=== PATIENT | female | born 1955 | race Caucasian/White ===

== ENCOUNTER → 2023-06-04 10:42 | Outpatient (REF) | payer MEDICARE, SELFPAY | LOC: MRI 3T 10:42 | PROVIDERS: ATTENDING PHYSICIAN Otolaryngology; PRIMARYCARE PHYSICIAN Family Medicine | DX: K11.8 Other diseases of salivary glands (principal) | CPT/HCPCS: 70543; A9575 ==

== ENCOUNTER 2023-08-18 06:12 | Day surgery (SDC) | payer MEDICARE, SELFPAY ==
[2023-08-12 09:10] VITALS: BMI 29.5
[2023-08-12 10:18] LABS: Hematocrit 31.7 % (37.0-47.0); Mean Corp Hgb Conc. 31.5 g/dL (33.0-37.0); Mean Corpuscular Hgb 27.9 pg (27.0-31.0); Mean Corpuscular Volume 88.3 fL (81.0-99.0); Mean Platelet Volume 10.9 fL (7.4-10.4); Platelet Count 210 10^3/uL (130-400); Red Blood Cell Count 3.59 10^6/uL (4.20-5.40); Red Cell Dist. Width 16.2 % (11.5-14.5); White Blood Cell Count 3.4 10^3/uL (4.8-10.8)
[2023-08-12 10:29] LABS: Blood Urea Nitrogen 16 mg/dl (7-17); Estimated Creatinine Clearance 102 ml/min; Glucose 86 mg/dl (70-99)
[2023-08-12 10:30] LABS: Calcium 7.9 mg/dl (8.4-10.2); Carbon Dioxide 31 mmol/L (22-30); Chloride 104 mmol/L (98-107); Potassium 4.2 mmol/L (3.5-5.1); Sodium 138 mmol/L (135-145); eGFR > 60.00
--- NOTE | 2023-08-12 13:56 | PTCARENOTE ---
Patient unable to hear my call 'got new hearing aids'. Patient requested communication via e-mail. Patient emailed showering and surgical instructions as well as current hospital med list. Requested patient have friend or other call us as as well
as email updated med list to the PAT dept.
[2023-08-18] VITALS (13 sets, daily range): BP systolic 0–149; BP diastolic 62–95; BMI 29.5
[2023-08-18] MEDS: TYLENOL 1000 MG PO (08:38)
[2023-08-18] MEDS: NORMOSOL-R 1000 IV (08:47)
[2023-08-18] MEDS: DILAUDID 0.5 MG IV (13:08)
[2023-08-18] MEDS: DILAUDID 0.25 MG IV ×3 (13:28→13:57)
== END 2023-08-18 15:39 | disposition home or self-care (01) ==
LOC: SDS 06:12
PROVIDERS: ATTENDING PHYSICIAN Otolaryngology; FAMILY PHYSICIAN Family Medicine
DX: C07 Malignant neoplasm of parotid gland (principal); K11.8 Other diseases of salivary glands; R22.1 Localized swelling, mass and lump, neck
CPT/HCPCS: 42415; 88307; 36415; 80048; 85027; 88313; 88341; 88342; 93005; C9250

== ENCOUNTER → 2023-11-12 16:26 | Outpatient (REF) | payer MEDICARE, SELFPAY ==
[2023-11-12 17:50] LABS: ALT (SGPT) 54 U/L (0-35); AST (SGOT) 92 U/L (14-36); Albumin 2.7 g/dl (3.5-5.0); Alkaline Phosphatase 198 U/L (38-126); Blood Urea Nitrogen 19 mg/dl (7-17); Calcium 8.5 mg/dl (8.4-10.2); Carbon Dioxide 29 mmol/L (22-30); Chloride 100 mmol/L (98-107); Glucose 91 mg/dl (70-99); Potassium 4.5 mmol/L (3.5-5.1); Sodium 133 mmol/L (135-145); Total Bilirubin 0.3 mg/dl (0.2-1.3); Total Protein 5.6 g/dl (6.3-8.2); eGFR > 60.00
== END ==
LOC: REG 16:26
PROVIDERS: ATTENDING PHYSICIAN Physician Assistant Medical
DX: R89.9 Unspecified abnormal finding in specimens from other organs, systems and tissues (principal)
CPT/HCPCS: 36415; 80053

== ENCOUNTER → 2024-01-04 14:19 | Outpatient (REF) | payer MEDICARE, SELFPAY | LOC: WDC 14:19 | PROVIDERS: ATTENDING PHYSICIAN Physician Assistant Medical; FAMILY PHYSICIAN Family Medicine | DX: Z78.0 Asymptomatic menopausal state (principal); I51.81 Takotsubo syndrome; Z12.31 Encounter for screening mammogram for malignant neoplasm of breast | CPT/HCPCS: 77063; 77067; 77080 ==

== ENCOUNTER → 2024-02-07 12:49 | Outpatient (REF) | payer MEDICARE, SELFPAY | LOC: RCS 12:49 | PROVIDERS: ATTENDING PHYSICIAN Internal Medicine Cardiovascular Disease; FAMILY PHYSICIAN Family Medicine | DX: I51.81 Takotsubo syndrome (principal) | CPT/HCPCS: 93306 ==

== ENCOUNTER 2024-05-19 17:08 | Inpatient (IN) | payer MEDICARE, SELFPAY ==
[2024-05-19] VITALS (8 sets, daily range): BP systolic 100–165; BP diastolic 68–101; BMI 29.6; BMI 22.5
[2024-05-19 14:07] LABS: Glucose - Point of Care 54 mg/dl (70-99)
[2024-05-19] MEDS: DEXTROSE 50% SYRINGE 25 GRAMS IV (14:09)
[2024-05-19 14:23] LABS: % Eosinophils 0.1 % (0-6); % Immature Granulocytes 0.4 % (0-0.5); % Lymphocytes 15.9 % (20.5-51.1); % Neutrophils 76.6 % (42.2-75.2); Absolute Basophils 0.1 10^3/uL (0-0.2); Absolute Lymphocytes 1.1 10^3/uL (1.2-3.4); Absolute Monocytes 0.4 10^3/uL (0.1-0.6); Absolute Neutrophils 5.4 10^3/uL (1.4-6.5); Hematocrit 34.9 % (37.0-47.0); Mean Corp Hgb Conc. 31.5 g/dL (33.0-37.0); Mean Corpuscular Hgb 28.9 pg (27.0-31.0); Mean Corpuscular Volume 91.6 fL (81.0-99.0); Mean Platelet Volume 9.3 fL (7.4-10.4); Nucleated Red Blood Cells % 0 %; Platelet Count 383 10^3/uL (130-400); Red Blood Cell Count 3.81 10^6/uL (4.20-5.40); Red Cell Dist. Width 14.9 % (11.5-14.5)
--- NOTE | 2024-05-19 14:28 | ED.GENMED ---
History of Present Illness
General
Chief Complaint: Alcohol Problem
Source: patient and ambulance crew
Exam Limitations: none
Time Seen by Provider: 05/19/24 14:08
Nursing documentation reviewed up to this point in time: agreed with
History of Present Illness
History of Present Illness:
68-year-old female with a past medical history of COPD, DJD, hypertension, hyperlipidemia, GERD who presents to the emergency department via EMS from home for evaluation of alcohol intoxication, nausea and abdominal discomfort. Patient says that
unfortunately she had a housemate over the past month who was an alcoholic. Patient has a history of alcohol abuse and says that she had been sober for quite some time but because of her housemate drinking she unfortunately started drinking again
and has been drinking quite heavily about a bottle of vodka daily for the past few weeks. She says her housemate was removed from the house recently. Patient says that over the past few days she has been having some mild abdominal discomfort with
nausea and occasional vomiting. She says that she thinks it is alcohol related. She says that she really wants to stop drinking today she called her neighbor and EMS was contacted to bring her to the hospital. She says that her last drink was
about 3 hours ago. Per EMS report she was noted to be hypoglycemic was given oral glucose on the way to the hospital. Of note: Shortly after arrival here patient had episode of melena when passing stool. She is not on any blood thinners.
Past History
Past History
ED Past Medical History: HTN, Psychiatric and Other (obesity )
ED Past Surgical History: Other (being considered for bariatric surgery )
Social History
Tobacco: Former smoker
Alcohol: None
Drug: None
Personal:
Living: with family
Employment: Employed
Review of Systems
Review of Systems
All Other Systems: ROS reviewed and negative except as documented in HPI and ROS
Constitutional: Denies fever
Respiratory: Denies trouble breathing
Cardiac: Denies chest pain
ABD/GI: Reports abdominal pain, nausea, vomiting and black stools
: Denies flank pain
Musculoskeletal: Denies neck pain or back pain
Neurological: Denies dizzy or headache
Phy Exam
Physical Exam
Physical Exam:
General: Awake, alert, oriented x3
Head: Normocephalic, atraumatic
Eyes: Conjunctiva normal, sclera neck
Throat: Airway intact, dry mucous membranes
Neck: Trachea midline, supple without meningismus
Lungs: Clear to auscultation bilaterally, no wheezing, rales, rhonchi
Heart: Tachycardia with regular rhythm, no murmurs, gallops, or rubs
Abd: Soft, non distended, nontender
Rectal: Black stool heme positive
Neuro: No gross deficit
Extremities: Warm and well-perfused
Scores
Heart Failure Risk
Heart Failure Risk Score: Not Applicable
Heart Score for Chest Pain Patients
STEMI patient?: Not applicable
Withdrawal Assessment of Alcohol
Withdrawal Assessment Completed?: Not applicable
Course
Orders/Labs/Results
Orders:
Orders
05/19/24 14:07
Dextrose 50%-Water [Dextrose 50% Syringe] 25 grams .ROUTE .STK-MED ONE
05/19/24 14:08
Dextrose 50%-Water [Dextrose 50% Syringe] 25 grams IV NOW STA
05/19/24 14:09
Drug Screen, Urine [Urine Drug Abuse Screen] Urgent
0.9% Sodium Chloride 1000 ml [Nss] 1,000 ml IV BOLUS
Dextrose 50%-Water [Dextrose 50% Syringe] 25 grams IV NOW STA
Thiamine Injection 100 mg IV NOW STA
05/19/24 14:11
Alcohol Urgent
Complete Blood Count/With Diff Urgent
Lipase Urgent
Comment: ADD ON
05/19/24 14:28
Ondansetron Injectable [Zofran] 4 mg IV NOW STA
Pantoprazole [Protonix IV] 80 mg IV NOW STA
05/19/24 14:33
Add On- LAB Urgent
Tests Added?: lipase
05/19/24 14:34
Electrocardiogram (*1) Urgent
Reason for Study: Tachycardia
Bedside Glucose- Treatment Q1H
EKG- Treatment ONCE
05/19/24 14:40
Type+Screen Urgent
Comprehensive Metabolic Panel Urgent
05/19/24 15:00
Dextrose 5%/0.9%Sodchl 1000 ml [D5/0.9% Sodium Chloride] 1,000 ml IV 75 mls/hr
FOLic ACID [Folvite] 1 mg 0.9% Sodium Chloride 50 ml [Nss] 50 ml IV ONCE
Abnormal Lab Results
05/19/24 05/19/24 05/19/24
14:06 14:11 14:40
RBC 3.81 L 10^6/uL
(4.20-5.40)
Hgb 11.0 L g/dL
(12.0-16.0)
Hct 34.9 L %
(37.0-47.0)
MCHC 31.5 L g/dL
(33.0-37.0)
RDW 14.9 H %
(11.5-14.5)
Absolute Lymphs (auto) 1.1 L 10^3/uL
(1.2-3.4)
Neutrophils % 76.6 H %
(42.2-75.2)
Lymphocytes % 15.9 L %
(20.5-51.1)
Carbon Dioxide 11 L* mmol/L
(22-30)
Glucose 50 L* mg/dl
(70-99)
Calcium 7.8 L mg/dl
(8.4-10.2)
AST 628 H* U/L
(14-36)
ALT 168 H U/L
(0-35)
Alkaline Phosphatase 181 H U/L
(38-126)
Total Protein 5.5 L g/dl
(6.3-8.2)
Albumin 3.0 L g/dl
(3.5-5.0)
POC Glucose 54 L* mg/dl
(70-99)
05/19/24
14:55
RBC
Hgb
Hct
MCHC
RDW
Absolute Lymphs (auto)
Neutrophils %
Lymphocytes %
Carbon Dioxide
Glucose
Calcium
AST
ALT
Alkaline Phosphatase
Total Protein
Albumin
POC Glucose 189 H mg/dl
(70-99)
05/19/24 14:11
05/19/24 14:40
Vital Signs
Initial and Last Documented VS:
Initial Vital Signs
BP
100/68
05/19/24 14:06
Last Documented Vital Signs
Pulse Resp BP Pulse Ox
112 21 100/68 98
05/19/24 14:30 05/19/24 14:30 05/19/24 14:14 05/19/24 14:30
MDM/Problems Addressed
Differential Diagnosis Includes:
Black stool: Upper GI bleeding could be from ulcer versus gastritis, varices
Hypoglycemia: Likely related to alcohol use
MDM/Problems Addressed:
68-year-old female presents to the ER via EMS from [facility] presents seeking help with her alcohol use which has relapsed over the past month; she notes that she has had some abdominal discomfort and vomiting and had an episode of black stools here.
She was also noted to be hypoglycemic by EMS was given oral glucose. Her blood glucose on arrival here was in the 50s. She was given an amp of D50 IV. Labs sent off including a CBC and a CMP, lipase, type and screen, alcohol level. Will treat
with IV Protonix, IV Zofran. Will give thiamine folate as well as IV fluids. Monitor closely reassess after the above. Plan for admission pending initial assessment.
Labs reviewed: CBC shows stable hemoglobin 11. Platelets acceptable. Her CMP shows anion gap metabolic acidosis suspect alcoholic ketoacidosis. Glucose of 50 has been addressed. Abnormal LFTs which patient says is known to her. Lipase is
normal. Given fluids, thiamine, folate, Protonix, Zofran, dextrose push plus infusion. Will admit for continued management of alcoholic ketoacidosis, hypoglycemia, upper GI bleeding. Case discussed with hospitalist.
Chronic conditions affecting care:
Alcohol use
*Pulse Oximetry
Patient hypoxic: no
*EKG
Interpreted by ED Provider?: Yes
Heart Rate: 111
Rate: tachycardiac
Rhythm: sinus and PAC's
[place]: normal axis
Interval: normal interval
QRS Pattern: normal QRS
Ischemia: no ischemia
*Critical Care Note
Total Time (30-74mins, 75-104mins- exclusive of procedures): Not Applicable
Data Reviewed
Review of Other/Old Records Reveals: Labs and Records
Source: patient, records and ambulance crew
Patient Management
Discussion with other providers: Hospitalist (Discussed with hospitalist)
Escalation/DeEscalation of care consider admission/obs:
Admission indicated
ED Attending Note
-
Portions of this chart may have been created with voice recognition software.� Occasional wrong word or��sound alike� substitutions may have occurred due to the inherent limitations of voice recognition software.
Discharge Plan
Departure
Patient Disposition: Admit
Date of Disposition: 05/19/24
Time of Disposition: 15:15
Admit to doctor: Mackenzie
Presentation/result/management discussed w/ accepting MD/DO: Hospitalist
Discharge Problem:
Alcoholic ketoacidosis, Acute upper GI bleeding, Alcohol intoxication, Hypoglycemia
Prescriptions:
No Action
lisinopril 20 MG tablet
20 mg PO DAILY
celecoxib [Celebrex] 200 mg Capsule
200 mg PO BIDPRN PRN (Reason: pain)
metoprolol succinate 50 mg Tablet Extended Release 24 Hr
50 mg PO DAILY
trazodone 100 mg Tablet
100 mg PO HS
fluoxetine [Prozac] 20 mg Capsule
60 mg PO DAILY
naproxen sodium [Aleve] 220 mg Capsule
220 mg PO PRN PRN (Reason: pain)
Trelegy Ellipta 100-62.5-25 mcg Blister With Device
1 inh INHALATION DAILY
methylphenidate HCl [Ritalin] 20 mg Tablet
20 mg PO BID
oxycodone-acetaminophen [Percocet] 7.5-325 mg Tablet
1 tab PO QIDPRN PRN (Reason: pain)
albuterol sulfate 90 mcg/actuation Hfa Aerosol Inhaler
1 inh INHALATION DAILY
buspirone 15 mg Tablet
15 mg PO BID
melatonin 10 mg Tablet
20 mg PO HSPRN PRN (Reason: Insomnia)
cyclobenzaprine 10 mg tablet
10 mg PO BIDPRN PRN (Reason: muscle spasm)
hydrocodone-acetaminophen [hydrocodone-acetaminophen] 5-325 mg tablet
1 - 2 tab PO Q4HPRN PRN (Reason: Mod-severe pain) 7 Days Qty: 30 0RF
amoxicillin-pot clavulanate 875-125 mg tablet
1 tab PO Q12 5 Days Qty: 10 0RF
Referrals:
UNKNOWN,NO INTERVIEW [Family Provider] -
Interventions
Interventions:
*Risk Screen - Suicide Last Done: 05/19/24 14:14
*General Assessment Last Done: 05/19/24 14:14
*Neglect/Abuse Screening Last Done: 05/19/24 14:14
*ED COVID-19 Vaccine History Last Done: 05/19/24 14:37
Discharge Date and Time
Print Language: GREEK
[2024-05-19] MEDS: NSS 1000 IV (14:38)
[2024-05-19] MEDS: PROTONIX IV 80 MG IV (14:49)
[2024-05-19] MEDS: THIAMINE INJECTION 100 MG IV (14:49)
[2024-05-19] MEDS: ZOFRAN 4 MG IV (14:49)
[2024-05-19 14:54] LABS: Alcohol 338 mg/dl; Lipase 105 U/L (23-300)
[2024-05-19 14:56] LABS: Glucose - Point of Care 189 mg/dl (70-99)
[2024-05-19 15:14] LABS: ALT (SGPT) 168 U/L (0-35); AST (SGOT) 628 U/L (14-36); Alkaline Phosphatase 181 U/L (38-126); Blood Urea Nitrogen 16 mg/dl (7-17); Calcium 7.8 mg/dl (8.4-10.2); Carbon Dioxide 11 mmol/L (22-30); Chloride 102 mmol/L (98-107); Estimated Creatinine Clearance 104 ml/min; Glucose 50 mg/dl (70-99); Potassium 3.8 mmol/L (3.5-5.1); Sodium 136 mmol/L (135-145); Total Bilirubin 0.8 mg/dl (0.2-1.3); Total Protein 5.5 g/dl (6.3-8.2); eGFR > 60.00
--- NOTE | 2024-05-19 15:21 | HPS.HSE ---
Family Physician
-
Family Physician: NO INTERVIEW UNKNOWN
Chief Complaint
-
Alcohol intoxication, nausea, dry heaves, black stool
History of Present Illness
68-year-old female from home for evaluation of alcohol intoxication, nausea , dry heaves abdominal discomfort and a sore throat for the past 3 days with headache 7/10 for the past 3 days. She reports she was sober for 5 years ago but then started
binge drinking typically she will drink over 3 to 4 days 750 mL bottle of vodka then not drink for 2 weeks however she has a new housemate that is an alcoholic and started drinking quite heavily which prompted her to resume drinking 1 bottle vodka
750 mL daily for the past several weeks she has history of chronic back pain and has been taking Motrin 600 mg daily along with Aleve 3-4 times a week aspirin a couple times a week and Celebrex 1-2 times daily. Over the past few days she has had
abdominal discomfort with nausea, occasional dry heaves. She reports she has had black liquid stool with some formed pieces since she has not been eating much. She is also had a 20 pound weight loss in the past 6 months. She called a neighbor
today to bring her to the hospital due to her symptoms. Her last drink was approximately 3 hours prior to arrival, sometime around 11 AM. She was hypoglycemic per EMS on the way to the hospital and was given IV glucose. Shortly after arrival here
in the ER she had episode of melena when passing stool. She is not on any aspirin, but med rec appear she could be on naproxen along with Celebrex
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
radical lymph node dissection former smoker, asthma, Takotsubo cardiomyopathy EF 40% 10/11/2023, EF 60% 02/07/2024, anxiety, depression, ADD,HLD, SHARI, GERD,DDD ,Cervical disc disease , [place] bilateral hearing aids that are not working.
Medical History
Past Medical History
Past Medical History: Reports Other
Additional Past Medical History:
Alcohol abuse
Chronic headaches almost daily per patient she states
Anxiety/depression
ADD
Right breast cancer status postlumpectomy and radiation therapy
COPD
Former smoker
Right upper lobe adenocarcinoma 02/10/2023 status post assisted right upper lobe extended wedge/sublobar resection, radical lymph node dissection
HTN
Takotsubo cardiomyopathy 10/11/2023 EF 40% with apical hypokinesis dynamic LVOT obstruction aortic valve described as sclerotic with trivial aortic regurg
2D echo 02/07/2024: EF 60%, normal biventricular size and systolic function, no wall abnormalities, mild regurgitation, mildly sclerotic, trileaflet aortic valve without stenosis or aortic regurg
HLD
SHARI
Asthma
GERD
DDD
Cervical disc disease
Obesity status post gastric bypass
[place] bilateral hearing aids
Past Surgical History: Reports Other
Additional Past Surgical History:
Right breast postlumpectomy secondary to right breast cancer
Right upper lobe adenocarcinoma 02/10/2023 status post assisted right upper lobe extended wedge/sublobar resection, radical lymph node dissection
Gastric bypass
Social History
Tobacco: Former Smoker (48-year 1 pack a day quit 18 years ago)
Alcohol: Daily (750 mL vodka daily)
Personal: Single
Living: Alone (Currently has a friend staying with her)
Employment: Retired
Family History
Family History: Other (Mother lungs CA age 74 father cardiac possible stent age 85 1 brother age 55 history of cystic fibrosis and esophageal cancer)
Allergies / Home Medications
Allergies reflects when Allergies were last updated in [facility].
Home Medications with original date entered in [facility]
Allergy/Medication List:
Allergies
Allergy/AdvReac Type Severity Reaction Status Date / Time
No Known Allergies Allergy Verified 05/19/24 14:14
Home Medications
lisinopril 20 mg tablet 20 mg PO DAILY Blood Pressure 09/12/13
celecoxib 200 mg capsule (Celebrex) 200 mg PO DAILY 12/21/22
trazodone 100 mg tablet 100 mg PO HS 12/21/22
buspirone 15 mg tablet 15 mg PO BID 08/13/23
cyclobenzaprine 10 mg tablet 10 mg PO HS 08/13/23
oxycodone-acetaminophen 7.5 mg-325 mg tablet (Percocet) 1 tab PO QIDPRN PRN severe pain 08/13/23
Aspir-81 81 mg PO DAILY PRN Back pain 05/19/24
Motrin 600 mg PO DAILY PRN back pain 05/19/24
escitalopram oxalate 5 mg tablet (Lexapro) 10 mg PO DAILY 05/19/24
naproxen 220 mg PO DAILY PRN Back pain, headache 05/19/24
therapeutic multivitamin 1 tab PO DAILY 05/19/24
Review of Systems
-
History Source: Patient
A 12 point ROS was completed and negative except as noted: Yes
Constitutional: Reports Weight Loss (20 pounds in the past 6 months); Denies Fever or Fatigue
EENT: Reports Sore Throat (3 days); Denies Runny Nose
Respiratory: Denies Cough or Trouble Breathing
Cardiac: Denies Chest Pain, Diaphoresis, Palpitations or Syncope
Abdomen/GI: Reports Abdominal Pain (Epigastric), Nausea, Vomiting (Dry heaves) and Black Stools (Past week); Denies Diarrhea or Constipated
: Denies Dysuria, Frequency, Flank Pain, Incontinence, Difficulty Voiding, Urgency, Bleeding, Dark Urine or Discharge
Musculoskeletal: Denies Joint Pain or Edema
Skin: Denies Itching or Rash
Neurological: Reports Headache (Generalized all overhead 7 out of 10); Denies Dizzy or Weakness
Endocrine: Reports No Symptoms
Hematologic/Lymphatic: Reports No Symptoms
Psych: Reports Anxiety (And agitated)
Physical Exam
Vital Signs
Vital Signs
Pulse Resp BP Pulse Ox
112 100/68 98
05/19/24 14:30 05/19/24 14:30 05/19/24 14:14 05/19/24 14:30
Physical Exam
General: Conversant and Other (Agitated); No Fever or Chills
HEENT: NormoCephalic, Anicteric, Atraumatic, PERRLA, [place] Conjunctivae, No Ptosis, Hearing Impaired, Neck Nontender and Other (Very hard of hearing with bilateral hearing aids in place that do not work for patient, sore throat but negative
pharyngeal erythema); No Thyromegaly
Respiratory: Clear; No Wheezes, Rales or Rhonchi
Cardiac: S1/S2 and Tachycardia (Sinus tach); No Murmur, Rub, Gallop or Peripheral Edema
Breast: Deferred by me
GI: Soft, Non Distended, Normal Bowel Sounds and Tender (Epigastric area)
Rectal: Hem Positive (Brown heme positive per GI at bedside)
Genito-urinary: Deferred by me
Musculoskeletal: No Clubbing, No Cyanosis and No Edema
Skin: Warm and Dry; No Rash or Jaundice
Neuro: AO x 3, No Motor Deficits, Nonfocal/grossly intact, Cranial Nerves Intact and No Sensory Deficits; No Slurred Speech, Facial Droop, Tremors or Sedated
Psych: Agitated
Laboratory Results
-
05/19/24 14:11
05/19/24 14:40
Laboratory Results
Total Bilirubin 0.8 mg/dl (0.2-1.3) 05/19/24 14:40
AST 628 U/L (14-36) H* 05/19/24 14:40
ALT 168 U/L (0-35) H 05/19/24 14:40
Alkaline Phosphatase 181 U/L (38-126) H 05/19/24 14:40
Lipase 105 U/L (23-300) 05/19/24 14:11
Data Reviewed
-
Lab Data: Labs Reviewed by me
Impression/Plan
-
Impression/plan:
Admit to IMU
#Acute GI bleed secondary to PUD, gastritis, alcohol abuse, NSAID abuse
#Hx GERD
#Hx gastric bypass
Sore throat x 3 days with headache
-Black stool heme positive in ER
-Hgb 11 will follow H&H every 8 hours
-Type and screen, blood consent obtained in the ER by myself and scanned into computer
-IV Protonix 80 mg bolus will continue IV Protonix drip
-Consult GI
-N.p.o.
-IV Zofran as needed
-Hold Celebrex 200 mg daily, Motrin 600 mg 3-4 times a week, Aleve 1 tablet 3-4 times a week, Aspirin 3-4 times a week
-Follow CBC, CMP
#Sorethroat / headache concerning for URI versus viral illness
-Check COVID and influenza swab
-Tylenol only needed for fever due to transaminitis
#Acute alcohol intoxication/alcohol abuse
#Acute metabolic acidosis 2/2 alcohol abuse
Reports started drinking again approximately 3 weeks ago
-Last drink was today at 11 AM 1 bottle vodka
Blood alcohol level 338 at 1411, will trend
MSAs screen with protocol
-IV thiamine, IV folate
-Consult Psychiatry as patient wants treatment
-Corrected calcium 8.6
-INR pending
#Acute hypoglycemia in setting of alcohol intoxication
BS glucose 50, prior to ER patient was given IV 25 g dextrose by EMS
-Patient given 25 g dextrose 50% x 2 in ER
-Dextrose 5% with NSS 75 mL/h due to recurrent hypoglycemia
-Accu-Cheks every 2 hours
-Check HgbA1c
#Acute Hypotension secondary to volume depletion
HTN�benign
BP 100/68
-IV NSS 1 L given in ER
-Current D5 with NSS 75 mL an hour due to recurrent hypoglycemia
-Monitor BP
-Hold lisinopril 20 mg daily
#Acute transaminitis secondary to alcohol abuse
AST 628, ALT 168, alk phos 181
-Check ultrasound abdomen
-GI to check hepatitis panel
-Hold trazodone 100 mg at bedtime
#Acute on chronic lower back pain
-Hold Celebrex 200 mg daily, Motrin 600 mg 3-4 times a week, Aleve 1 tablet 3-4 times a week, Aspirin 3-4 times a week
-Patient advised no NSAIDs, aspirin, Aleve, Motrin, ibuprofen, Pepto-Bismol
-START Oxycodone 5 mg daily 4 times daily as needed Severe pain in place of Percocet with Tylenol due to transaminitis
-Continue Flexeril 10 mg p.o. at bedtime
-Check Tylenol level
#Anxiety/depression
-Continue Lexapro 10 mg daily started this 1 month ago was on prior Prozac
-Continue BuSpar 15 mg p.o. twice daily
#ADD hx
#Right upper lobe adenocarcinoma 02/10/2023 status post assisted right upper lobe extended wedge/sublobar resection, radical lymph node dissection
#COPD-no acute exacerbation
#Former smoker 48-year 1 pack a day quit 18 years ago
-Patient follows with [facility]
#Takotsubo cardiomyopathy
10/11/2023 EF 40% with apical hypokinesis dynamic LVOT obstruction aortic valve described as sclerotic with trivial aortic regurg
2D echo 02/07/2024: EF 60%, normal biventricular size and systolic function, no wall abnormalities, mild regurgitation, mildly sclerotic, trileaflet aortic valve without stenosis or aortic regurg
#HLD
-No current medication likely due to history of transaminitis
#SHARI
#Asthma -no acute exacerbation
-No inhalers reported
Other PMH:
Right breast cancer status postlumpectomy and radiation therapy
DDD
Cervical disc disease
Obesity status post gastric bypass
[place] bilateral hearing aids
Right parotid mass status post right complete parotidectomy with facial nerve monitoring and preservation of facial nerve 08/18/2023 Dr. Lawson
Full code patient's daughter Keri Solares is her emergency contact
[2024-05-19] MEDS: FOLVITE 50.2 MG IV (15:41)
[2024-05-19 16:22] LABS: Glucose - Point of Care 79 mg/dl (70-99)
[2024-05-19] MEDS: D5/0.9% SODIUM CHLORIDE 1000 IV (16:31)
[2024-05-19 16:53] LABS: INR 1.03; PT 13.8 Sec (11.4-14.6)
[2024-05-19 16:59] LABS: COVID-19 Antigen Negative (Negative)
--- NOTE | 2024-05-19 17:14 | CON.GI ---
Addendum entered and electronically signed by Susana Davey MD 05/19/24 19:01:
I saw and examined the patient.
The DEPUTY CHIEF EXECUTIVE's note was reviewed and I agree with the note.
Comment: This is a 68-year-old female with past medical history as listed below including prior history of breast cancer, lung cancer, parotid cancer, s/p RYGB and history of heavy alcohol abuse who had apparently been sober for about 15 years but
relapsed about 5 years ago and she says that her housemate is a alcoholic and she had been drinking more recently was drinking almost gallon of vodka daily and her last drink was a couple of hours ago. She also has been taking a lot of NSAIDs prior
to admission she has been on aspirin and Celebrex and also was taking Motrin. Unclear if she was also taking naproxen. She presented with what she thought was withdrawal symptoms and also had complained of nausea vomiting and abdominal pain. She
had also reported dark stools but apparently she had taken Pepto-Bismol her hemoglobin is stable at 11 on admission and her BUN is normal. Rectal by our DEPUTY CHIEF EXECUTIVE with brown stool OB positive. She has been trying to cut back on drinking recently. she does
have significant hypoglycemia with a glucose of 50 and she received an amp of D50 and also has acidosis with a bicarb of 11. She also has significant elevation in transaminases AST greater than ALT. she had also seen Dr. Wilburn recently and was
going to be scheduled for endoscopy colonoscopy further labs for workup for abnormal LFTs and ultrasound which she has not had done yet.
Assessment and plan 1. Abdominal pain with nausea vomiting most likely related to alcohol related gastritis and also excessive NSAID use prior to admission and could have PUD especially status post Micheline-en-Y gastric bypass. Told her that she
should really avoid NSAIDs completely and she has been trying to cut back on drinking also. Will start her on Protonix twice daily she says she did have dark stool but unclear if this is from Pepto or melena she has OB positive brown stool now her
BUN is normal and hemoglobin is stable currently. She does have significant gap acidosis and hypoglycemia which is being corrected now will schedule upper endoscopy when stable sooner if she has active bleeding. Also recommended for her to
consider alcohol rehab and abstain from alcohol
2. Transaminitis most likely related to alcohol hepatitis AST significantly greater than ALT but will also get salicylate level and UDS is pending, her acetaminophen level is less than 10. Will also get CPK level. Ultrasound with Dopplers is
pending, will continue to trend LFTs, hepatitis serologies are also pending.
3. She also has had recent weight loss which I think is related to excessive alcohol intake with decreased oral intake and s/p gastric bypass but she will need eventual endoscopy and a colonoscopy and probable CT also.
Original Note:
Consultation
-
Date/Time Consultation Requested: 05/19/24 1640
Date/Time Consultation Performed: 05/19/24 1645
Requesting Provider: LC Crum
Performing Provider: Dr. Davey/Lc Laurent
Reason for Consultation: nausea, black stools, elevated LFTs, ETOH abuse
Medical History
Chief Complaint / HPI
Chief Complaint: nausea, dry heaves,
History of Present Illness:
68 y.o female with past medical history of HTN, asthma/COPD, history of RYGB, lung cancer (s/p curative RUL resection 01/2003), R parotidectomy (parotid cancer 07/2023), right breast cancer (in 1999 s/p lumpectomy and XRT), previous hospitalization
on 09/2023 after syncopal event/unwitnessed fall in setting of alcohol intoxication and later diagnosed with Takotsubo's cardiomyopathy (w/ recent TTE with EF recovery) and alcohol abuse who per her account was drinking upwards of a gallon of vodka
daily who recently saw Dr. Wilburn in the office after being referred by her PCP for concerns of elevated liver function tests on 05/10/2024. She reported to him that she was consuming a box of wine as well as 1/5 of vodka. She presented to the
emergency room today after having a couple days of dry heaves, 'black stool' and wanted to be 'detoxed'. She states that she has been trying to reduce her alcohol consumption from upward of a gallon a day and has been reducing it and is currently
at 1/5 of vodka. She states that she has been going through periods of withdrawal over the past couple days. She called her neighbor and EMS was sent to her house to bring her to the hospital. She was drinking 3 hours prior to admission. She was
found to be hypoglycemic and given oral glucose on the way to the hospital. Her blood sugar was 50 on arrival. We are asked to evaluate for her concerns of black stool. The patient has a history of Micheline-en-Y gastric bypass, she also has been
using Celebrex, Aleve and Motrin for her history of musculoskeletal pain. She also tried medical marijuana as well as Percocet. She states that she tries to avoid Tylenol as she has Percocet. She does admit to Pepto-Bismol use at home. However
she recently ran out. She has never had an endoscopy before. Last colonoscopy in 2008. She states that she has not had any vomiting but just dry heaves. She is also had a significant 20 pound weight loss over the past 6 months.Currently she
denies any fevers, chills, hematochezia, dysphagia or dyne aphasia. No new medications except for the medicinal marijuana that she tried. She was unable to have the lab work or ultrasound performed that Dr. Wilburn ordered. I did perform rectal exam
in the ER that was light brown liquid but OB positive stool. Labs WBC 7.0, hemoglobin 11.0, hematocrit 34.9, platelets 383, MCV 91.6, MCH 28.9, PT 13.8, INR 1.03, sodium 136, potassium 3.8, chloride 102, CO2 11, BUN 16, creatinine 0.6, glucose 50,
total bilirubin 0.8, AST 628, ALT 168, alk phos 181, albumin 3.0, lipase 105, alcohol level 338, COVID negative, flu negative acetaminophen level pending.
Past Medical History
Past Medical History: Other (Pretension, asthma, COPD, lung cancer with curative resection, parotid cancer, right breast cancer, alcohol abuse, Takotsubo's cardiomyopathy)
Past Surgical History: Other (Micheline-en-Y gastric bypass, right upper lobe lung resection, right parotidectomy, right lumpectomy,)
Social History
Tobacco: Non-Smoker
Alcohol: Daily (Was drinking a gallon of vodka daily, most recently drinking 1/5 of vodka daily with last drink 3 hours prior to arrival in ER)
Drug: Marijuana
Personal:
Living: With Roomate
Family History
Family History: Other (Child with Forrester syndrome, No first-degree relatives with esophageal, stomach/gastric cancer or known GI malignancy)
Allergies / Home Medications
Allergy/AdvReac Type Severity Reaction Status Date / Time
No Known Allergies Allergy Verified 05/19/24 14:14
�Medication �Instructions �Recorded
lisinopril 20 mg tablet 20 mg PO DAILY Blood Pressure 12/08/12
celecoxib 200 mg capsule (Celebrex) 200 mg PO DAILY 12/21/22
trazodone 100 mg tablet 100 mg PO HS 12/21/22
buspirone 15 mg tablet 15 mg PO BID 08/13/23
cyclobenzaprine 10 mg tablet 10 mg PO HS 08/13/23
oxycodone-acetaminophen 7.5 mg-325 1 tab PO QIDPRN PRN severe pain 08/13/23
mg tablet (Percocet)
Aspir-81 81 mg PO DAILY PRN Back pain 05/19/24
Motrin 600 mg PO DAILY PRN back pain 05/19/24
escitalopram oxalate 5 mg tablet 10 mg PO DAILY 05/19/24
(Lexapro)
naproxen 220 mg PO DAILY PRN Back pain, 05/19/24
headache
therapeutic multivitamin 1 tab PO DAILY 05/19/24
Review of Systems
-
All other systems: A 12 pt ROS was Negative except as stated above in HPI
Vital Signs
Pulse Resp BP Pulse Ox
112 21 100/68 98
05/19/24 14:30 05/19/24 14:30 05/19/24 14:14 05/19/24 14:30
Physical Exam
Exam
General: No Apparent Distress
HEENT: Anicteric and Other (Spider angiomata across upper chest)
Respiratory: Clear
Cardiac: Regular Rhythm
GI: Soft, Non Tender, Non Distended and Normal Bowel Sounds
Skin: Warm and Dry
Neuro: AO x 3
Psych: Calm
Results
WBC 7.0 10^3/uL (4.8-10.8) 05/19/24 14:11
Hgb 11.0 g/dL (12.0-16.0) L 05/19/24 14:11
Hct 34.9 % (37.0-47.0) L 05/19/24 14:11
MCV 91.6 fL (81.0-99.0) 05/19/24 14:11
Plt Count 383 10^3/uL (130-400) 05/19/24 14:11
Absolute Neuts (auto) 5.4 10^3/uL (1.4-6.5) 05/19/24 14:11
PT 13.8 Sec (11.4-14.6) 05/19/24 16:34
INR 1.03 05/19/24 16:34
Sodium 136 mmol/L (135-145) 05/19/24 14:40
Potassium 3.8 mmol/L (3.5-5.1) 05/19/24 14:40
Chloride 102 mmol/L (98-107) 05/19/24 14:40
Carbon Dioxide 11 mmol/L (22-30) L* 05/19/24 14:40
BUN 16 mg/dl (7-17) 05/19/24 14:40
Creatinine 0.6 mg/dL (0.6-1.0) 05/19/24 14:40
Calcium 7.8 mg/dl (8.4-10.2) L 05/19/24 14:40
Total Bilirubin 0.8 mg/dl (0.2-1.3) 05/19/24 14:40
AST 628 U/L (14-36) H* 05/19/24 14:40
ALT 168 U/L (0-35) H 05/19/24 14:40
Alkaline Phosphatase 181 U/L (38-126) H 05/19/24 14:40
Lipase 105 U/L (23-300) 05/19/24 14:11
Diagnostic Image Results:
Prior GI Procedures:
Colonoscopy (screening, good prep) 05/14/2008- Impression: Diverticulosis in the proximal descending colon. One 3 mm polyp in the rectum, resected (benign appearing, pathology with hyperplastic polyp). The exam was otherwise without abnormality.
Advised a repeat colonoscopy in 5 years for surveillance
Denies any prior EGD in the past
Prior labs from 11/08/2023: CMP with BUN 15 and Technical Administrator 0.67. LFTs with AST 43, ALT 49, ALP 222, T Bili 0.3, and albumin 2.8. CBC with WBC 5.2, Hgb 11.9, and plts 427.
Repeat CMP with LFTs on 11/12/2023 demonstrated AST 92, ALT 54, ALP 198, T Bili 0.3, and albumin 2.7.�
Of note, prior LFTs dating back from 2021, 2019 and 2018 have been previously normal including normal transaminases (AST 18-19 and ALT 12-18) along with normal ALP (between 71-127).
Assessment / Plan
-
68 y.o female with past medical history of HTN, asthma/COPD, history of RYGB, lung cancer (s/p curative RUL resection 01/2003), R parotidectomy (parotid cancer 07/2023), right breast cancer (in 1999 s/p lumpectomy and XRT), previous hospitalization
on 09/2023 after syncopal event/unwitnessed fall in setting of alcohol intoxication and later diagnosed with Takotsubo's cardiomyopathy (w/ recent TTE with EF recovery) and alcohol abuse who per her account was drinking upwards of a gallon of vodka
daily who recently saw Dr. Wilburn in the office after being referred by her PCP for concerns of elevated liver function tests on 05/10/2024. She reported to him that she was consuming a box of wine as well as 1/5 of vodka. She presented to the
emergency room today after having a couple days of dry heaves, 'black stool' and wanted to be 'detoxed'. She states that she has been trying to reduce her alcohol consumption from upward of a gallon a day and has been reducing it and is currently at
1/5 of vodka. She states that she has been going through periods of withdrawal over the past couple days. She called her neighbor and EMS was sent to her house to bring her to the hospital. She was drinking 3 hours prior to admission. She was
found to be hypoglycemic and given oral glucose on the way to the hospital. Her blood sugar was 50 on arrival. We are asked to evaluate for her concerns of black stool. The patient has a history of Micheline-en-Y gastric bypass, she also has been
using Celebrex, Aleve and Motrin for her history of musculoskeletal pain. She states that she has been trying to reduce her alcohol consumption from upward of a gallon a day and has been reducing it and is currently at 1/5 of vodka. She states that
she has been going through periods of withdrawal over the past couple days. She called her neighbor and EMS was sent to her house to bring her to the hospital. She was drinking 3 hours prior to admission. She was found to be hypoglycemic and
given oral glucose on the way to the hospital. Her blood sugar was 50 on arrival. We are asked to evaluate for her concerns of black stool. The patient has a history of Micheline-en-Y gastric bypass, she also has been using Celebrex, Aleve and Motrin
for her history of musculoskeletal pain.Rectal exam performed by myself showed light brown liquid stool in rectal vault that was OB positive. Hemoglobin 11.0 with normal BUN of 16. She does state that she was using Pepto-Bismol prior to this
however she ran out. Total bilirubin 0.8, AST 628, ALT 168, alk phos 181, albumin 3.0, lipase 105, alcohol level 338.
Impression:
Nausea
ETOH intoxication
OB positive stool, light brown
Micheline en Y Gastric Bypass
Hypoglycemia
Anion gap Metabolic acidosis
Transaminitis with significant elevation of AST
Headache
Salicylate use
Weight loss
Plan:
-Pantoprazole 40 mg IV BID
-Correction of acidosis per IM
-Check CPK and Salicylate level
-Await Tylenol level
-Trend LFTs
-CBC, CMP, INR, D Bili, PT/INR in am
-Hepatitis panel
-US Abdomen with dopplers.
-ETOH withdrawal protocol per IM
-EGD if with active bleeding, will need eventual EGD. Timing to be determined as she has never had one as well as with weight loss.
-Outpatient liver serological workup unless with signs of decompensation
-Further recommendations to be forthcoming.
-
-
Thank you for consultation and allowing me to participate in the patient's care. Please call the agriculture extension specialist GI physician during the after hours with any questions or concerns.
--- NOTE | 2024-05-19 17:15 | W.PN.UPDATE ---
Update Note
Progress Note Update
This is an addendum to H&P written by Angelita Cardoza on 05/19/2024.� Patient seen and examined independently with EDGER MACHINE HELPER.
68-year-old female past medical history of alcohol use disorder, chronic headaches, anxiety/depression, ADD, right breast cancer status post lumpectomy/radiation, COPD, former smoker, right upper lobe adenocarcinoma status post resection,
hypertension, Takotsubo cardiomyopathy, hyperlipidemia, obstructive sleep apnea, asthma, GERD, degenerative disc disease, cervical disc disease, obesity status post gastric bypass, hearing loss, presenting with nausea, dry heaving, abdominal
discomfort and sore throat for 3 days as well as black watery stool for the past week with weight loss.
Has been using Celebrex, aspirin and Aleve and Motrin daily for lower back pain.� Had melena while here.
She was hypoglycemic per EMS on the way to the hospital given IV glucose.
Labs show hemoglobin of 11.� Bicarbonate level of 11.� Glucose of 50.� Elevated liver enzymes AST of 628, ALT of 168.
Alcohol level 330.
Patient with upper GI bleeding secondary to NSAID use in the setting of gastric bypass history.� NPO.� Protonix drip.� GI consulted.� Blood pressure 100s.� Hold lisinopril.
Patient with alcohol withdrawal.� Thiamine and folate.� IV fluids.� Alcohol withdrawal protocol.� Phenobarbital protocol.�She has metabolic acidosis secondary to alcohol use.
Transaminitis secondary to alcohol.� Check liver ultrasound.� Check hepatitis panel.� Hold trazodone.� Check Tylenol level.
Hypoglycemia�likely secondary to decreased PO intake/alcohol use.� Check PT/INR.� She was given 50 g of dextrose here and 25 g by EMS.� D5 normal saline infusion.
Patient also with sore throat and headache concerning for URI.� COVID and influenza pending.
[2024-05-19 17:47] LABS: Glucose - Point of Care 53 mg/dl (70-99)
[2024-05-19] MEDS: DEXTROSE 50% SYRINGE 12.5 GRAMS IV (17:48)
[2024-05-19 18:02] LABS: Acetaminophen < 10 ug/ml (10-30)
[2024-05-19 18:04] LABS: Glucose - Point of Care 108 mg/dl (70-99)
[2024-05-19] MEDS: PROTONIX 100 IV (18:19)
[2024-05-19 18:37] LABS: Amphetamines Negative (Negative); Barbiturates Negative (Negative); Benzodiazepines Negative (Negative); Buprenorphine Negative (Negative); Cocaine Negative (Negative); Marijuana Negative (Negative); Methadone Negative (Negative); Methamphetamines Negative (Negative); Opiates Negative (Negative); Phencyclidine Negative (Negative); Tricyclic Antidepressants Negative (Negative)
[2024-05-19 18:47] LABS: Creatine Phosphokinase 41 U/L (30-135); Salicylate < 1.0 mg/dl (2.0-20.0)
[2024-05-19 19:19] LABS: Hepatitis B Surface Antigen Negative (Negative)
--- NOTE | 2024-05-19 19:19 | PTCARENOTE ---
Patient arrived to unit, [facility] even with hearing aids in place. She is O x 3, cooperative. Pt states she is 'embarrassed ' and staff encouraged pt to continue to express feelings, and encouraged her that staff is here to care and protect her without
judgment. Moving all extremities. IVF and IV protonix infusing, skin assessment completed with second RN. Call light in reach.
[2024-05-19] MEDS: PHENOBARBITAL 104 MG IV (19:30)
[2024-05-19 19:36] LABS: Hepatitis A Antibody, Total Negative (Negative); Hepatitis B Core Ab, Total Negative (Negative); Hepatitis B Surface Antibody Negative; Hepatitis C Antibody Negative (Negative)
[2024-05-19] MEDS: BUSPAR 15 MG PO (19:38)
[2024-05-19 20:14] LABS: Glucose - Point of Care 70 mg/dl (70-99)
[2024-05-19 21:02] LABS: GGTP 239 U/L (12-43); Phosphorus 3.9 mg/dl (2.5-4.5)
[2024-05-19 21:08] LABS: B-Hydroxybutyrate 4.74 mmol/L (0.02-0.27)
--- NOTE | 2024-05-19 22:02 | PTCARENOTE ---
Pt received resting in bed. AAOx3. LS clear POX 95% on RA but while asleep desats into the mid 80's. Lexus PLATT tt'd and order entered for O2. Placed on 2L NC for overnight. Admits to 8/10 pain rating to lower back. Due for pain med at
midnight. MSAS 3-4. ST on CM rate 100's. RR 14 afebrile. No BM since arriving to IMU floor. Oriented to room and surroundings. Skin as documented. Call sunshine within reach. Will continue to monitor.
[2024-05-19 22:41] LABS: Glucose - Point of Care 80 mg/dl (70-99)
[2024-05-19] MEDS: ROXICODONE 5 MG PO (23:44)
[2024-05-19] MEDS: THIAMINE INJECTION 200 MG IV (23:45)
[2024-05-20] VITALS (19 sets, daily range): BP systolic 129–196; BP diastolic 70–110; PULSE 95; O2SAT 99; BMI 22.7
[2024-05-20 00:38] LABS: Glucose - Point of Care 84 mg/dl (70-99)
--- NOTE | 2024-05-20 02:19 | PTCARENOTE ---
BP 182/90 HR 97 MSAS 3. Braxton PLATT TT'd and on floor and made aware. No orders at this time. Will continue to monitor at this time.
[2024-05-20] MEDS: PROTONIX 100 IV ×2 (02:42→13:50)
[2024-05-20 04:05] LABS: Glucose - Point of Care 105 mg/dl (70-99)
[2024-05-20 04:16] LABS: Urine Albumin 2+ (Neg - Trace); Urine Bilirubin Negative (Negative); Urine Character Clear (Clear); Urine Color Yellow; Urine Glucose Negative (Negative); Urine Ketone 3+ (Negative); Urine Leukocyte Negative (Negative); Urine Nitrite Negative (Negative); Urine Occult Blood Negative (Negative); Urine Urobilinogen 1+ (Neg - 1+)
[2024-05-20 04:18] LABS: Amphetamines Negative (Negative); Barbiturates Positive (Negative); Benzodiazepines Negative (Negative); Buprenorphine Negative (Negative); Cocaine Negative (Negative); Marijuana Negative (Negative); Methadone Negative (Negative); Methamphetamines Negative (Negative); Opiates Negative (Negative); Phencyclidine Negative (Negative); Tricyclic Antidepressants Negative (Negative)
[2024-05-20 04:23] LABS: Urine Amorphous Seen
[2024-05-20 04:24] LABS: Urine Bacteria Few (Negative); Urine Red Blood Cell 0-2 /HPF (0-2); Urine White Cell 0-2 /HPF (0-5)
[2024-05-20 04:25] LABS: % Basophils 0.8 % (0-2); % Eosinophils 0.5 % (0-6); % Immature Granulocytes 0.3 % (0-0.5); % Lymphocytes 21.3 % (20.5-51.1); % Monocytes 8.6 % (1.7-9.3); % Neutrophils 68.5 % (42.2-75.2); Absolute Basophils 0.1 10^3/uL (0-0.2); Absolute Lymphocytes 1.4 10^3/uL (1.2-3.4); Absolute Monocytes 0.6 10^3/uL (0.1-0.6); Absolute Neutrophils 4.4 10^3/uL (1.4-6.5); Hematocrit 29.6 % (37.0-47.0); Hemoglobin 9.9 g/dL (12.0-16.0); Mean Corp Hgb Conc. 33.4 g/dL (33.0-37.0); Mean Corpuscular Hgb 29.4 pg (27.0-31.0); Mean Corpuscular Volume 87.8 fL (81.0-99.0); Mean Platelet Volume 9.5 fL (7.4-10.4); Nucleated Red Blood Cells % 0 %; Platelet Count 272 10^3/uL (130-400); Red Blood Cell Count 3.37 10^6/uL (4.20-5.40); Red Cell Dist. Width 14.4 % (11.5-14.5); White Blood Cell Count 6.5 10^3/uL (4.8-10.8)
[2024-05-20] MEDS: ZOFRAN 4 MG IV (04:25)
[2024-05-20] MEDS: D5/0.9% SODIUM CHLORIDE 1000 IV ×2 (04:28→16:47)
[2024-05-20 04:34] LABS: Fentanyl, Urine Negative (Negative)
[2024-05-20 04:34] LABS: INR 0.96; PT 13.1 Sec (11.4-14.6)
[2024-05-20 04:47] LABS: ALT (SGPT) 152 U/L (0-35); AST (SGOT) 372 U/L (14-36); Albumin 2.6 g/dl (3.5-5.0); Alkaline Phosphatase 178 U/L (38-126); Blood Urea Nitrogen 15 mg/dl (7-17); Calcium 7.4 mg/dl (8.4-10.2); Carbon Dioxide 27 mmol/L (22-30); Chloride 102 mmol/L (98-107); Direct Bilirubin 0.3 mg/dl (0.0-0.4); Estimated Creatinine Clearance 90 ml/min; Glucose 103 mg/dl (70-99); HDL Cholesterol 98 mg/dl; LDL Cholesterol, Calculated 81 mg/dl; Magnesium 1.5 mg/dl (1.6-2.3); Potassium 3.8 mmol/L (3.5-5.1); Sodium 134 mmol/L (135-145); Total Bilirubin 0.9 mg/dl (0.2-1.3); Total Cholesterol 198 mg/dl (50-199); Triglyceride 95 mg/dl (10-149); Very Low Density Lipoprotein 19 mg/dl (0-30); eGFR > 60.00
[2024-05-20 04:50] LABS: Alcohol None Detected
[2024-05-20] MEDS: ROXICODONE 5 MG PO ×3 (05:51→18:14)
[2024-05-20] MEDS: LOPRESSOR 5 MG IV (06:35)
[2024-05-20] MEDS: FLUSH (NSS) 2 FLUSH IV (06:36)
[2024-05-20] MEDS: LEXAPRO 10 MG PO (07:41)
[2024-05-20] MEDS: BUSPAR 15 MG PO ×2 (07:41→20:55)
[2024-05-20] MEDS: THIAMINE INJECTION 200 MG IV ×3 (07:42→23:48)
[2024-05-20] MEDS: FOLVITE 1 MG PO (07:42)
[2024-05-20] MEDS: PHENOBARBITAL 97.5 MG IV ×3 (07:42→20:55)
[2024-05-20 08:23] LABS: Glucose - Point of Care 142 mg/dl (70-99)
--- NOTE | 2024-05-20 08:48 | W.PN.HOSP.TC ---
Today's Communication/Plan
-
High risk of alcohol withdrawal. Have low threshold to give ativan.
Assessment / Plan
Assessment / Plan
68-year-old woman comes in with GIB, alcohol intoxication, nausea , dry heaves abdominal discomfort and a sore throat for the past 3 days with headache 7/10 for the past 3 days. Melena in ER.
1 bottle vodka 750 mL daily for the past several weeks
Motrin 600 mg daily along with Aleve 3-4 times a week aspirin a couple times a week and Celebrex 1-2 times daily.
reports she has had black liquid stool with some formed pieces since she has not been eating much.
20 pound weight loss in the past 6 months.
1. Acute GI bleed likely secondary to PUD, gastritis, alcohol abuse, NSAID abuse
She has Hx GERD, Hx gastric bypass
Black stool heme positive in ER
Hgb 11 (H&H every 8 hours), this am 9.9
-Typed and screened, blood consent obtained in the ER
Patient evaluated by GI. GI recommends:
'-Pantoprazole 40 mg IV BID
-Correction of acidosis per IM
-Check CPK and Salicylate level
-Await Tylenol level
-Trend LFTs
-CBC, CMP, INR, D Bili, PT/INR in am
-Hepatitis panel
-US Abdomen with dopplers.
-ETOH withdrawal protocol per IM
-EGD if with active bleeding, will need eventual EGD. Timing to be determined as she has never had one as well as with weight loss.
-Outpatient liver serological workup unless with signs of decompensation
-Further recommendations to be forthcoming.'
-IV Protonix 40 IV BID
-N.p.o. - PO meds OK
-IV Zofran as needed
-Hold all NSAIDS
-Follow CBC, CMP
2. Sore throat / headache concerning for URI / viral illness
-COVID and influenza swab both (-)
-Tylenol only as needed for fever given transaminitis (transaminitis likely from etoh, it is better this am)
3. Acute alcohol intoxication/alcohol abuse with Acute metabolic acidosis 2/2 alcohol abuse
-Last drink was 05/19/24 at 11 AM 1 bottle vodka
Blood alcohol level 338 at 1411
MSAs screen with protocol for etoh w/d:
-IV thiamine, IV folate
-Consult Psychiatry as patient wants treatment
-Corrected calcium is 8.6
-INR pending
4. Acute hypoglycemia in setting of alcohol intoxication
BS glucose 50, prior to ER patient was given IV 25 g dextrose by EMS
-Patient given 25 g dextrose 50% x 2 in ER
-Dextrose 5% with NSS 75 mL/h due to recurrent hypoglycemia
-Accu-Cheks every 2 hours
-Check HgbA1c
5. Acute Hypotension secondary to volume depletion (resolved) now with HTN, has h/o essential HTN on lisinopril
BP 100/68, now 192/107
-Monitor BP
-resume lisinopril 20 mg daily
-give ativan as needed for etoh WD
6. Acute transaminitis, very likely secondary to alcohol abuse
AST 628, ALT 168, alk phos 181, AST/ALT now 372/152
-Check ultrasound abdomen
-GI to check hepatitis panel
-Hold trazodone 100 mg at bedtime
7. Acute on chronic lower back pain
-Hold all NSAIDS
-START Oxycodone 5 mg daily 4 times daily as needed Severe pain in place of Percocet with Tylenol due to transaminitis
-Continue Flexeril 10 mg p.o. at bedtime
-Tylenol level < 10
8. Anxiety/depression
-Continue Lexapro 10 mg daily started this 1 month ago was on prior Prozac
-Continue BuSpar 15 mg p.o. twice daily
-Patient has requested psych consult
9. Important additional issues from H to keep in mind:
Right upper lobe adenocarcinoma 02/10/2023 status post assisted right upper lobe extended wedge/sublobar resection, radical lymph node dissection
COPD-no acute exacerbation
Former smoker 48-year 1 pack a day quit 18 years ago
Patient follows with [facility]
Takotsubo cardiomyopathy
10/11/2023 EF 40% with apical hypokinesis dynamic LVOT obstruction aortic valve described as sclerotic with trivial aortic regurg
2D echo 02/07/2024: EF 60%, normal biventricular size and systolic function, no wall abnormalities, mild regurgitation, mildly sclerotic, trileaflet aortic valve without stenosis or aortic regurg
HLD-No current medication likely due to history of transaminitis
SHARI
Asthma -no acute exacerbation
Other PMH:
Right breast cancer status postlumpectomy and radiation therapy
DDD
Cervical disc disease
Obesity (resolved) status post gastric bypass
CHITIMACHA bilateral hearing aids
Right parotid mass status post right complete parotidectomy with facial nerve monitoring and preservation of facial nerve 08/18/2023 Dr. Lawson
Full code
patient's daughter Keri Solares is her emergency contact
VCD for DVTp
Anticipated Discharge: > 48 hours
Subjective/Interval History
-
Date of Service: May 20, 2024
Feels well this am. No new complaints.
Objective Data
-
Labs:
Laboratory Results
05/20/24
03:47
WBC 6.5
Hgb 9.9 L
Hct 29.6 L
Plt Count 272 D
PT 13.1
INR 0.96
Sodium 134 L
Potassium 3.8
Chloride 102
Carbon Dioxide 27
BUN 15
Creatinine 0.5 L
Glucose 103 H
Calcium 7.4 L
Total Bilirubin 0.9
AST 372 H
ALT 152 H
Alkaline Phosphatase 178 H
Vital Signs:
Vital Signs
Temp Pulse Resp BP Pulse Ox
98.3 F 101 20 192/107 97
05/20/24 03:51 05/20/24 04:30 05/20/24 04:30 05/20/24 06:35 05/20/24 04:30
I&O
05/19/24 05/20/24 05/21/24
06:59 06:59 06:59
Intake Total 1020 / 1020
Output Total 400 / 400
Balance 620 / 620
Review of Systems
-
History Source: Patient
All other systems: Reviewed and negative
Physical Exam
-
General: Well Developed, Well Nourished, No Apparent Distress and Comfortable
HEENT: Normocephalic, Moist Mucous Membranes, Nose Appears Normal, Ears Appear Normal and Hearing Impaired
Respiratory: Clear to Auscultation
Cardiac: Regular Rhythm and S1/S2
GI: Soft, Nontender and Nondistended
Musculoskeletal: No Clubbing, No Cyanosis and No Edema
Skin: Warm, Dry and Rash
Neuro: Awake, Alert, Oriented and AO x 3
Psych: Calm
Data Reviewed
-
Labs: Labs Reviewed by me
[2024-05-20 08:59] LABS: Glycohemoglobin (HgbA1c) 4.7 % (4.0-5.6)
[2024-05-20] MEDS: ATIVAN 1 MG PO (09:28)
--- NOTE | 2024-05-20 11:09 | W.PN.GI.CBS2 ---
Today's Communication / Plan
-
adv diet
EGD Wednesday
Assessment / Plan
-
68 y.o female with past medical history of HTN, asthma/COPD, history of RYGB, lung cancer (s/p curative RUL resection 01/2003), R parotidectomy (parotid cancer 07/2023), right breast cancer (in 1999 s/p lumpectomy and XRT), previous hospitalization
on 09/2023 after syncopal event/unwitnessed fall in setting of alcohol intoxication and later diagnosed with Takotsubo's cardiomyopathy (w/ recent TTE with EF recovery) and alcohol abuse who per her account was drinking upwards of a gallon of vodka
daily who recently saw Dr. Wilburn in the office after being referred by her PCP for concerns of elevated liver function tests on 05/10/2024. She reported to him that she was consuming a box of wine as well as 1/5 of vodka. She presented to the
emergency room today after having a couple days of dry heaves, 'black stool' and wanted to be 'detoxed'. She states that she has been trying to reduce her alcohol consumption from upward of a gallon a day and has been reducing it and is currently at
1/5 of vodka. She states that she has been going through periods of withdrawal over the past couple days. She called her neighbor and EMS was sent to her house to bring her to the hospital. She was drinking 3 hours prior to admission. She was
found to be hypoglycemic and given oral glucose on the way to the hospital. Her blood sugar was 50 on arrival. We are asked to evaluate for her concerns of black stool. The patient has a history of Micheline-en-Y gastric bypass, she also has been
using Celebrex, Aleve and Motrin for her history of musculoskeletal pain. She states that she has been trying to reduce her alcohol consumption from upward of a gallon a day and has been reducing it and is currently at 1/5 of vodka. She states that
she has been going through periods of withdrawal over the past couple days. She called her neighbor and EMS was sent to her house to bring her to the hospital. She was drinking 3 hours prior to admission. She was found to be hypoglycemic and
given oral glucose on the way to the hospital. Her blood sugar was 50 on arrival. We are asked to evaluate for her concerns of black stool. The patient has a history of Micheline-en-Y gastric bypass, she also has been using Celebrex, Aleve and Motrin
for her history of musculoskeletal pain.Rectal exam performed by myself showed light brown liquid stool in rectal vault that was OB positive. Hemoglobin 11.0 with normal BUN of 16. She does state that she was using Pepto-Bismol prior to this
however she ran out. Total bilirubin 0.8, AST 628, ALT 168, alk phos 181, albumin 3.0, lipase 105, alcohol level 338.
Impression:
Nausea
ETOH intoxication
OB positive stool, light brown
Micheline en Y Gastric Bypass
Hypoglycemia
Anion gap Metabolic acidosis
Transaminitis with significant elevation of AST
Headache
Salicylate use
Weight loss
Plan:
Abdominal pain with nausea vomiting, ? melena, brown OB positive stool in ER most likely related to alcohol related gastritis and also excessive NSAID use prior to admission and could have PUD especially status post Micheline-en-Y gastric bypass.
avoid NSAIDs completely
continue Protonix twice daily
will schedule EGD on Wednesday
Transaminitis most likely related to alcohol hepatitis
Ultrasound with Dopplers shows fatty liver vasculature is okay
Hepatitis serologies are negative
Acetaminophen and salicylate level negative CPK normal
LFTS trending down
Metabolic acidosis has been corrected and hypoglycemia has also been corrected
Abstain from alcohol after DC may need inpatient rehab if patient agreeable
She also has had recent weight loss which I think is related to excessive alcohol intake with decreased oral intake and s/p gastric bypass but she will need eventual endoscopy and a colonoscopy and probable CT also.
Subjective
Subjective
Date of Service: May 20, 2024
She is feeling better no further nausea or vomiting abdominal pain is also improved no further melena or diarrhea
Objective
Data Reviewed
Laboratory Data:
Laboratory Results
05/20/24 03:47
05/20/24 03:47
Laboratory Results
PT 13.1 Sec (11.4-14.6) 05/20/24 03:47
INR 0.96 05/20/24 03:47
Phosphorus 3.9 mg/dl (2.5-4.5) 05/19/24 20:41
Magnesium 1.5 mg/dl (1.6-2.3) L 05/20/24 03:47
Total Bilirubin 0.9 mg/dl (0.2-1.3) 05/20/24 03:47
AST 372 U/L (14-36) H 05/20/24 03:47
ALT 152 U/L (0-35) H 05/20/24 03:47
Alkaline Phosphatase 178 U/L (38-126) H 05/20/24 03:47
Lipase 105 U/L (23-300) 05/19/24 14:11
Vital Signs and I&O:
Vital Signs
Temp Pulse Resp BP Pulse Ox
98.0 F 80 9 179/91 94
05/20/24 07:32 05/20/24 09:15 05/20/24 09:15 05/20/24 09:15 05/20/24 09:15
I&O
05/19/24 05/20/24 05/21/24
06:59 06:59 06:59
Intake Total 1020 / 1020
Output Total 400 / 400
Balance 620 / 620
Laboratory Tests
05/19/24 05/19/24
14:40 18:08
Creatine Kinase 41
Salicylates < 1.0 L
Acetaminophen < 10 L
Hepatitis A Ab Total Negative
Hep Bs Antigen Negative
Hep Bs Antibody Negative
Hep B Core Total Ab Negative
Hepatitis C Antibody Negative
05/20/24 US abdomen with dopplers
IMPRESSION: Hepatic fatty infiltration. Stable.
Mild hepatomegaly. New.
Prior cholecystectomy. new
Nonvisualization of pancreas.
Doppler evaluation is within normal limits.
Physical Exam
Physical Exam
Cardiology: Normal Sinus Rhythm
Pulmonary: Clear
GI: Soft, Non Distended, Non Tender and Normal Bowel Sounds
[2024-05-20] MEDS: ZESTRIL 20 MG PO (11:14)
[2024-05-20] MEDS: ATIVAN 1 MG IV ×3 (12:54→23:48)
[2024-05-20 13:25] LABS: Glucose - Point of Care 132 mg/dl (70-99)
[2024-05-20 16:37] LABS: Glucose - Point of Care 160 mg/dl (70-99)
[2024-05-20 20:10] LABS: Glucose - Point of Care 181 mg/dl (70-99)
[2024-05-20] MEDS: PROTONIX IV 40 MG IV (21:17)
[2024-05-20] MEDS: NSS (PRESERVATIVE FREE) 10 ML IV (21:18)
[2024-05-20] MEDS: ROXICODONE PO (23:45)
[2024-05-21] VITALS (11 sets, daily range): BP systolic 122–168; BP diastolic 73–117; BMI 22.5
[2024-05-21 00:14] LABS: Glucose - Point of Care 122 mg/dl (70-99)
[2024-05-21 04:24] LABS: Glucose - Point of Care 111 mg/dl (70-99)
[2024-05-21 04:32] LABS: % Basophils 0.7 % (0-2); % Eosinophils 6.3 % (0-6); % Immature Granulocytes 0.4 % (0-0.5); % Lymphocytes 28.6 % (20.5-51.1); % Monocytes 10.5 % (1.7-9.3); % Neutrophils 53.5 % (42.2-75.2); Absolute Eosinophils 0.3 10^3/uL (0-0.7); Absolute Lymphocytes 1.3 10^3/uL (1.2-3.4); Absolute Monocytes 0.5 10^3/uL (0.1-0.6); Absolute Neutrophils 2.4 10^3/uL (1.4-6.5); Hematocrit 29.6 % (37.0-47.0); Hemoglobin 9.9 g/dL (12.0-16.0); Mean Corp Hgb Conc. 33.4 g/dL (33.0-37.0); Mean Corpuscular Hgb 30.2 pg (27.0-31.0); Mean Corpuscular Volume 90.2 fL (81.0-99.0); Mean Platelet Volume 9.5 fL (7.4-10.4); Nucleated Red Blood Cells % 0 %; Platelet Count 187 10^3/uL (130-400); Red Blood Cell Count 3.28 10^6/uL (4.20-5.40); Red Cell Dist. Width 14.4 % (11.5-14.5); White Blood Cell Count 4.5 10^3/uL (4.8-10.8)
[2024-05-21 04:54] LABS: ALT (SGPT) 102 U/L (0-35); AST (SGOT) 150 U/L (14-36); Albumin 2.3 g/dl (3.5-5.0); Alkaline Phosphatase 157 U/L (38-126); Blood Urea Nitrogen 7 mg/dl (7-17); Calcium 7.9 mg/dl (8.4-10.2); Carbon Dioxide 31 mmol/L (22-30); Chloride 98 mmol/L (98-107); Estimated Creatinine Clearance 90 ml/min; Glucose 116 mg/dl (70-99); Potassium 3.3 mmol/L (3.5-5.1); Sodium 131 mmol/L (135-145); Total Bilirubin 0.9 mg/dl (0.2-1.3); Total Protein 4.9 g/dl (6.3-8.2); eGFR > 60.00
--- NOTE | 2024-05-21 05:00 | PTCARENOTE ---
Pt with increased confusion overnight. MSAS as documented. Medicated with Ativan as ordered. Denies pain or discomfort. Purewick placed for comfort overnight. IVF's infusing as ordered. No n/v. VSS. Afebrile. Currently resting comfortably. Call sunshine
remains within reach. Bed alarm on and working.
[2024-05-21] MEDS: D5/0.9% SODIUM CHLORIDE 1000 IV (05:24)
[2024-05-21] MEDS: ROXICODONE PO (05:24)
[2024-05-21 08:18] LABS: Glucose - Point of Care 108 mg/dl (70-99)
--- NOTE | 2024-05-21 08:24 | W.PN.HOSP.TC ---
Today's Communication/Plan
-
see A/P
Assessment / Plan
Assessment / Plan
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 Melena in ER.
1 bottle vodka 750 mL daily for the past several weeks.
Motrin 600 mg daily along with Aleve 3-4 times a week aspirin a couple times a week and Celebrex 1-2 times daily.
reports she has had black liquid stool with some formed pieces since she has not been eating much.
20 pound weight loss in the past 6 months.
A/P:
# Acute blood loss anemia likely 2/2 Acute upper GI bleed, possibly secondary to PUD, gastritis, alcohol abuse, NSAID abuse
# Hx GERD
# Hx gastric bypass
Black stool heme positive in ER
Hgb 11 -> 9.9 today
Typed and screened, blood consent obtained in the ER
GI recc Pantoprazole 40 mg IV BID (started), plan for EGD 05/22
IV Zofran as needed
Hold all NSAIDS
# Hypokalemia
replete
# Sore throat / headache concerning for URI / viral illness
COVID and influenza swab both (-)
Cepacol PRN
# Acute Transaminitis, likely secondary to alcohol abuse, improving
CPK WNL, salicylate and Tylenol levels neg
Hepatitis panel negative
Abd US: Hepatic fatty infiltration. Stable. Mild hepatomegaly. New.
Trend LFT
# Acute alcohol intoxication/alcohol abuse with Acute metabolic acidosis (resolved) 2/2 alcohol abuse
Last drink was 05/19/24 at 11 AM 1 bottle vodka, Blood alcohol level 338
Phenobarb with taper, MSAs protocol
CM to assist with [facility] CS
# Acute hypoglycemia in setting of alcohol intoxication, resolved after treatment
# Acute Hypotension secondary to volume depletion, resolved
# Essential HTN
cont home lisinopril with holding parameter
# Acute on chronic lower back pain
Hold all NSAIDS
Started Oxycodone 5 mg daily 4 times daily as needed for severe pain in place of Percocet with Tylenol due to transaminitis
Continue Flexeril 10 mg p.o. at bedtime
Tylenol level < 10
# Anxiety/depression
Continue Lexapro 10 mg daily started this 1 month ago was on prior Prozac
Continue BuSpar 15 mg p.o. twice daily
Mood stable, informed pt that she can follow up at [facility] outpatient after discharge
Other medical conditions
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
# COPD-no acute exacerbation
# Former smoker 48-year 1 pack a day quit 18 years ago
# HLD-No current medication likely due to history of transaminitis
# SHARI
# Asthma -no acute exacerbation
# Right breast cancer status postlumpectomy and radiation therapy
# DDD
# Cervical disc disease
# Obesity (resolved) status post gastric bypass
# [place] bilateral hearing aids
# Right parotid mass status post right complete parotidectomy with facial nerve monitoring and preservation of facial nerve 08/18/2023 Dr. Lawson
Full code
DVT ppx: Lovenox SQ
DW RN
total time 51 min
Anticipated Discharge: > 48 hours
Subjective/Interval History
-
Date of Service: May 21, 2024
Objective Data
-
Labs:
Laboratory Results
05/21/24
04:07
WBC 4.5 L
Hgb 9.9 L
Hct 29.6 L
Plt Count 187 D
Sodium 131 L
Potassium 3.3 L
Chloride 98
Carbon Dioxide 31 H
BUN 7
Creatinine 0.5 L
Glucose 116 H
Calcium 7.9 L
Total Bilirubin 0.9
AST 150 H
ALT 102 H
Alkaline Phosphatase 157 H
Vital Signs:
Vital Signs
Temp Pulse Resp BP Pulse Ox
36.3 C 76 13 137/78 95
05/21/24 03:00 05/21/24 06:00 05/21/24 06:00 05/21/24 06:00 05/21/24 06:00
I&O
05/20/24 05/21/24 05/22/24
06:59 06:59 06:59
Intake Total 1120 / 1120 4800 / 4800
Output Total 400 / 400 1000 / 1000
Balance 720 / 720 3800 / 3800
Review of Systems
-
All other systems: Reviewed and negative
Physical Exam
-
General: Well Developed, Well Nourished, No Apparent Distress and Comfortable
HEENT: Normocephalic, Moist Mucous Membranes, Nose Appears Normal, Ears Appear Normal and Hearing Impaired
Respiratory: Clear to Auscultation and Non Labored Respirations; Negative Accessory Resp Muscle Use
Cardiac: Regular Rhythm and S1/S2
GI: Soft, Nontender and Nondistended
Musculoskeletal: No Clubbing, No Cyanosis and No Edema
Skin: Warm, Dry and Rash
Neuro: Awake, Alert and Oriented
Psych: Calm and Intact Judgement/Insight
Data Reviewed
-
Labs: Labs Reviewed by me
[2024-05-21] MEDS: NSS (PRESERVATIVE FREE) 10 ML IV ×2 (08:48→20:20)
[2024-05-21] MEDS: PROTONIX IV 40 MG IV ×2 (08:49→20:20)
[2024-05-21] MEDS: THIAMINE INJECTION 200 MG IV ×2 (08:54→15:07)
[2024-05-21] MEDS: PHENOBARBITAL 97.5 MG IV ×3 (08:56→20:20)
[2024-05-21] MEDS: ZESTRIL 20 MG PO (08:57)
[2024-05-21] MEDS: BUSPAR 15 MG PO ×2 (08:57→20:18)
[2024-05-21] MEDS: LEXAPRO 10 MG PO (08:57)
[2024-05-21] MEDS: FOLVITE 1 MG PO (08:57)
[2024-05-21] MEDS: KCL 40 MEQ PO (08:58)
[2024-05-21 09:05] LABS: Magnesium 1.5 mg/dl (1.6-2.3)
--- NOTE | 2024-05-21 09:56 | W.PN.GI.CBS2 ---
Today's Communication / Plan
-
EGD in Am
Assessment / Plan
-
68 y.o female with past medical history of HTN, asthma/COPD, history of RYGB, lung cancer (s/p curative RUL resection 01/2003), R parotidectomy (parotid cancer 07/2023), right breast cancer (in 1999 s/p lumpectomy and XRT), previous hospitalization
on 09/2023 after syncopal event/unwitnessed fall in setting of alcohol intoxication and later diagnosed with Takotsubo's cardiomyopathy (w/ recent TTE with EF recovery) and alcohol abuse who per her account was drinking upwards of a gallon of vodka
daily who recently saw Dr. Wilburn in the office after being referred by her PCP for concerns of elevated liver function tests on 05/10/2024. She reported to him that she was consuming a box of wine as well as 1/5 of vodka. She presented to the
emergency room today after having a couple days of dry heaves, 'black stool' and wanted to be 'detoxed'. She states that she has been trying to reduce her alcohol consumption from upward of a gallon a day and has been reducing it and is currently at
1/5 of vodka. She states that she has been going through periods of withdrawal over the past couple days. She called her neighbor and EMS was sent to her house to bring her to the hospital. She was drinking 3 hours prior to admission. She was
found to be hypoglycemic and given oral glucose on the way to the hospital. Her blood sugar was 50 on arrival. We are asked to evaluate for her concerns of black stool. The patient has a history of Micheline-en-Y gastric bypass, she also has been
using Celebrex, Aleve and Motrin for her history of musculoskeletal pain. She states that she has been trying to reduce her alcohol consumption from upward of a gallon a day and has been reducing it and is currently at 1/5 of vodka. She states that
she has been going through periods of withdrawal over the past couple days. She called her neighbor and EMS was sent to her house to bring her to the hospital. She was drinking 3 hours prior to admission. She was found to be hypoglycemic and
given oral glucose on the way to the hospital. Her blood sugar was 50 on arrival. We are asked to evaluate for her concerns of black stool. The patient has a history of Micheline-en-Y gastric bypass, she also has been using Celebrex, Aleve and Motrin
for her history of musculoskeletal pain.Rectal exam performed by myself showed light brown liquid stool in rectal vault that was OB positive. Hemoglobin 11.0 with normal BUN of 16. She does state that she was using Pepto-Bismol prior to this
however she ran out. Total bilirubin 0.8, AST 628, ALT 168, alk phos 181, albumin 3.0, lipase 105, alcohol level 338.
Impression:
Nausea
ETOH intoxication
OB positive stool, light brown
Micheline en Y Gastric Bypass
Hypoglycemia
Anion gap Metabolic acidosis
Transaminitis with significant elevation of AST
Headache
Salicylate use
Weight loss
Plan:
Abdominal pain with nausea vomiting, ? melena, brown OB positive stool in ER most likely related to alcohol related gastritis and also excessive NSAID use prior to admission and could have PUD especially status post Micheline-en-Y gastric bypass.
avoid NSAIDs completely
continue Protonix twice daily
will schedule EGD on Wednesday
Transaminitis most likely related to alcohol hepatitis
Ultrasound with Dopplers shows fatty liver vasculature is okay
Hepatitis serologies are negative
Acetaminophen and salicylate level negative CPK normal
LFTS trending down
Metabolic acidosis has been corrected and hypoglycemia has also been corrected
Abstain from alcohol after DC may need inpatient rehab if patient agreeable
She also has had recent weight loss which I think is related to excessive alcohol intake with decreased oral intake and s/p gastric bypass but she will need eventual endoscopy and a colonoscopy and probable CT also.
Continue thiamine folic acid and is on alcohol withdrawal prophylaxis
Subjective
Subjective
Date of Service: May 21, 2024
No further rectal bleeding or melena. Abdominal pain is markedly improved no nausea or vomiting
Objective
Data Reviewed
Laboratory Data:
Laboratory Results
05/21/24 04:07
05/21/24 04:07
Laboratory Results
PT 13.1 Sec (11.4-14.6) 05/20/24 03:47
INR 0.96 05/20/24 03:47
Phosphorus 3.9 mg/dl (2.5-4.5) 05/19/24 20:41
Magnesium 1.5 mg/dl (1.6-2.3) L 05/21/24 04:07
Total Bilirubin 0.9 mg/dl (0.2-1.3) 05/21/24 04:07
AST 150 U/L (14-36) H 05/21/24 04:07
ALT 102 U/L (0-35) H 05/21/24 04:07
Alkaline Phosphatase 157 U/L (38-126) H 05/21/24 04:07
Lipase 105 U/L (23-300) 05/19/24 14:11
Vital Signs and I&O:
Vital Signs
Temp Pulse Resp BP Pulse Ox
97.6 F 88 13 157/90 95
05/21/24 08:30 05/21/24 08:57 05/21/24 06:00 05/21/24 08:57 05/21/24 06:00
I&O
05/20/24 05/21/24 05/22/24
06:59 06:59 06:59
Intake Total 1120 / 1120 4800 / 4800
Output Total 400 / 400 1000 / 1000
Balance 720 / 720 3800 / 3800
Physical Exam
Physical Exam
Cardiology: Normal Sinus Rhythm
Pulmonary: Clear
GI: Soft, Non Distended, Non Tender and Normal Bowel Sounds
[2024-05-21] MEDS: ATIVAN 1 MG IV (12:14)
[2024-05-21 14:09] LABS: Glucose - Point of Care 170 mg/dl (70-99)
[2024-05-21] MEDS: MAGNESIUM SULFATE 50 IV (15:06)
[2024-05-21 16:39] LABS: Glucose - Point of Care 81 mg/dl (70-99)
--- NOTE | 2024-05-21 18:24 | PTCARENOTE ---
Received call from Pt's daughter to get information on her mother - as per Pt's direct request, no nurse is to update daughter on her medical situation. Pt asked that we instead forward call to her room. Informed daughter of this statement and
daughter seemed upset but stated that she understood and would text her mother on her cell phone.
[2024-05-21] MEDS: LOVENOX 40 MG SC (19:14)
--- NOTE | 2024-05-21 20:34 | PTCARENOTE ---
Found patient sitting at edge of bed with bed alarm ringing. Patient confused, does not know where she sit and extremely [place]. Hearing impairment making it difficult to re-orient pt. Pt assisted to BSC, very unsteady. Loose BM. Purewick placed HS.
PCT Nicolasa re-placed Sp02 monitor on finger and pt starting swatting at PCT. Pt again educated on situation. Pt educated on the importance of calling for assistance. Pt able to read lips, verbalized understanding. Bed alarm set. Pt swallowed med w/o
issues. Patient made aware of the plan for EGD in AM and NPO at 0000. CB left within reach.
[2024-05-21 20:55] LABS: Glucose - Point of Care 86 mg/dl (70-99)
[2024-05-21] MEDS: ATIVAN 1 MG PO (22:44)
--- NOTE | 2024-05-21 23:39 | PTCARENOTE ---
Patient reports anxiety, restlessness and increased tremors. MSAS 6; medicated with Ativan per the MAR.
At 1 hour reassessment, symptoms have subsided. Pt resting in bed, respirations even and unlabored, in no apparent distress.
Bed alarm set.
[2024-05-22] VITALS (18 sets, daily range): BP systolic 112–174; BP diastolic 64–119; BMI 23.5
[2024-05-22] MEDS: THIAMINE INJECTION 200 MG IV ×3 (00:51→15:49)
[2024-05-22] MEDS: ROXICODONE 5 MG PO ×2 (00:51→20:12)
[2024-05-22 01:06] LABS: Glucose - Point of Care 80 mg/dl (70-99)
[2024-05-22 05:49] LABS: Glucose - Point of Care 87 mg/dl (70-99)
[2024-05-22 06:36] LABS: % Basophils 1.3 % (0-2); % Eosinophils 7.7 % (0-6); % Immature Granulocytes 0.3 % (0-0.5); % Lymphocytes 29.8 % (20.5-51.1); % Monocytes 8.3 % (1.7-9.3); % Neutrophils 52.6 % (42.2-75.2); Absolute Eosinophils 0.2 10^3/uL (0-0.7); Absolute Lymphocytes 0.9 10^3/uL (1.2-3.4); Absolute Monocytes 0.3 10^3/uL (0.1-0.6); Absolute Neutrophils 1.6 10^3/uL (1.4-6.5); Hematocrit 28.4 % (37.0-47.0); Hemoglobin 9.5 g/dL (12.0-16.0); Mean Corp Hgb Conc. 33.5 g/dL (33.0-37.0); Mean Corpuscular Hgb 29.9 pg (27.0-31.0); Mean Corpuscular Volume 89.3 fL (81.0-99.0); Mean Platelet Volume 10.4 fL (7.4-10.4); Nucleated Red Blood Cells % 0 %; Platelet Count 176 10^3/uL (130-400); Red Blood Cell Count 3.18 10^6/uL (4.20-5.40); Red Cell Dist. Width 14.3 % (11.5-14.5); White Blood Cell Count 3.1 10^3/uL (4.8-10.8)
[2024-05-22 06:43] LABS: ALT (SGPT) 108 U/L (0-35); AST (SGOT) 160 U/L (14-36); Albumin 2.2 g/dl (3.5-5.0); Alkaline Phosphatase 159 U/L (38-126); Blood Urea Nitrogen 4 mg/dl (7-17); Calcium 8.1 mg/dl (8.4-10.2); Carbon Dioxide 32 mmol/L (22-30); Chloride 100 mmol/L (98-107); Estimated Creatinine Clearance 90 ml/min; Glucose 90 mg/dl (70-99); Magnesium 1.7 mg/dl (1.6-2.3); Potassium 3.5 mmol/L (3.5-5.1); Sodium 130 mmol/L (135-145); Total Bilirubin 0.5 mg/dl (0.2-1.3); Total Protein 4.4 g/dl (6.3-8.2); eGFR > 60.00
[2024-05-22] MEDS: NSS (PRESERVATIVE FREE) 10 ML IV ×2 (08:27→20:14)
[2024-05-22] MEDS: PROTONIX IV 40 MG IV ×2 (08:27→20:14)
[2024-05-22] MEDS: FLUSH (NSS) 3 FLUSH IV (08:28)
[2024-05-22] MEDS: LEXAPRO 10 MG PO (08:28)
[2024-05-22] MEDS: LUMINAL 64.8 MG PO ×3 (08:28→21:44)
[2024-05-22] MEDS: ZESTRIL 20 MG PO (08:29)
[2024-05-22] MEDS: BUSPAR 15 MG PO ×2 (08:29→20:13)
[2024-05-22] MEDS: FOLVITE 1 MG PO (08:29)
[2024-05-22 09:16] LABS: Glucose - Point of Care 94 mg/dl (70-99)
--- NOTE | 2024-05-22 09:38 | PTCARENOTE ---
Report given to GI lab - purewick removed- no urge to void- dentures removed- hearing left in place per pt. Accu check completed- normal. MSAS 3- asking for something to calm down this am, BP 150s/100s- All am meds given including Phenobarb and
BP meds. TO GI via monitored stretcher.
--- NOTE | 2024-05-22 09:47 | W.PN.HOSP.TC ---
Today's Communication/Plan
-
Stable for telemetry
Assessment / Plan
Assessment / Plan
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
1 bottle vodka 750 mL daily for the past several weeks.
Motrin 600 mg daily along with Aleve 3-4 times a week aspirin a couple times a week and Celebrex 1-2 times daily.
reports she has had black liquid stool with some formed pieces since she has not been eating much.
20 pound weight loss in the past 6 months.
A/P:
# Acute blood loss anemia likely 2/2 Acute upper GI bleed, possibly secondary to PUD, gastritis, alcohol abuse, NSAID abuse
# Hx GERD
# Hx gastric bypass
Black stool heme positive in ER
Typed and screened, blood consent obtained in the ER
GI recc Pantoprazole 40 mg IV BID (started)
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
GI recommends PPI twice daily for 4 weeks, then daily
Avoid all NSAIDs, needs repeat EGD in 2 months, follow-up with Dr. Wilburn
#Hyponatremia
Fluid restriction, check TSH, free T4, trend sodium
# Hypokalemia
Resolved
# Sore throat / headache concerning for URI / viral illness
COVID and influenza swab both (-)
Cepacol PRN
# Acute Transaminitis, likely secondary to alcohol abuse, improving
CPK WNL, salicylate and Tylenol levels neg
Hepatitis panel negative
Abd US: Hepatic fatty infiltration. Stable. Mild hepatomegaly. New.
Trend LFT
# Acute alcohol intoxication/alcohol abuse with Acute metabolic acidosis (resolved) 2/2 alcohol abuse
Last drink was 05/19/24 at 11 AM 1 bottle vodka, Blood alcohol level 338
Phenobarb with taper, MSAS protocol
CM to assist with [facility] CS
Patient wants to do outpatient rehab, declines inpatient alcohol rehab
# Acute hypoglycemia in setting of alcohol intoxication, resolved after treatment
# Acute Hypotension secondary to volume depletion, resolved
# Essential HTN
cont home lisinopril with holding parameter
# Acute on chronic lower back pain
Hold all NSAIDS
Started Oxycodone 5 mg daily 4 times daily as needed for severe pain in place of Percocet with Tylenol due to transaminitis
Continue Flexeril 10 mg p.o. at bedtime
Tylenol level < 10
# Anxiety/depression
Continue Lexapro 10 mg daily started this 1 month ago was on prior Prozac
Continue BuSpar 15 mg p.o. twice daily
Mood stable, informed pt that she can follow up at [facility] outpatient after discharge
Other medical conditions
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
# COPD-no acute exacerbation
# Former smoker 48-year 1 pack a day quit 18 years ago
# HLD-No current medication likely due to history of transaminitis
# SHARI
# Asthma -no acute exacerbation
# Right breast cancer status postlumpectomy and radiation therapy
# DDD
# Cervical disc disease
# Obesity (resolved) status post gastric bypass
# [place] bilateral hearing aids
# Right parotid mass status post right complete parotidectomy with facial nerve monitoring and preservation of facial nerve 08/18/2023 Dr. Lawson
DVT prophylaxis�subcu Lovenox
Full code
Total time spent to see the patient on the floor, examine the patient, review data and lab results, discuss treatment plan with patient, nursing staff around 50 minutes.
Physical Exam
General: No acute distress
HEENT: Normocephalic, Atraumatic, EOMI, MMM
Respiratory: Clear to Auscultation bilaterally
Cardiac: Normal S1/S2, Regular Rate and Rhythm
GI: Soft, Nontender, Nondistended, Normal Bowel Sounds
Extremities: No Clubbing, Cyanosis, or Edema
Neuro: Nonfocal/Grossly Intact
Psych: Calm, Cooperative
Derm: No Visible lesions
Anticipated Discharge: Within 24 hours
Subjective/Interval History
-
Date of Service: May 22, 2024
Patient complains of anxiety. Denies black or bloody stools. No nausea, no vomiting. No fever, no shortness of breath.
Objective Data
-
Labs:
Laboratory Results
05/22/24
05:37
WBC 3.1 L
Hgb 9.5 L
Hct 28.4 L
Plt Count 176
Sodium 130 L
Potassium 3.5
Chloride 100
Carbon Dioxide 32 H
BUN 4 L
Creatinine 0.4 L
Glucose 90
Calcium 8.1 L
Total Bilirubin 0.5
AST 160 H
ALT 108 H
Alkaline Phosphatase 159 H
Vital Signs:
Vital Signs
Temp Pulse Resp BP Pulse Ox
98 F 94 15 154/119 95
05/22/24 08:00 05/22/24 08:00 05/22/24 08:00 05/22/24 08:00 05/22/24 06:00
I&O
05/21/24 05/22/24 05/23/24
06:59 06:59 06:59
Intake Total 4800 / 4800
Output Total 1000 / 1000 650 / 650
Balance 3800 / 3800 -650 / -650
[2024-05-22 10:17] LABS: Glucose - Point of Care 85 mg/dl (70-99)
--- NOTE | 2024-05-22 10:21 | W.PN.UPDATE ---
Update Note
Progress Note Update
Okay for DC today to follow-up with Dr. Wilburn as outpatient
Continue Protonix twice daily and avoid NSAIDs
See EGd report for details
Will repeat EGD in 2 to 3-months
Will s/o and will be available as needed
[2024-05-22 12:26] LABS: Glucose - Point of Care 97 mg/dl (70-99)
--- NOTE | 2024-05-22 13:01 | CM ---
Patient with Hx Alcohol Abuse Disorder with Dx GI bleed, anemia, transaminitis. MSAS per nursing. PT/OT recommend skilled rehab.
Met with patient who was extremely [place].
The patient resides alone in a 4 story townhouse. 5-7 steps at entrance noted by PT & prior CM notes.
The patient was independent in ADLs and ambulation without using an assistive device.
She states she has been unable to care for herself very well due to weakness and SOB.
PT notated she has been sleeping on the first floor in a recliner.
The patient admits to 5 falls in the past few months with 1 fall recently, and points to her knees/legs that appear bruised.
The patient has no DME. She says she does not have hearing aides.
No prior VN or SNF.
PCP - Kenton Colón
Pharmacy - [facility]
The patient has no local family. Her daughter Imelda lives in [place].
CM Consult: Substance Abuse
Patient states she was at [facility] in the past and also did AA. She states she was sober for 15 years.
The patient is willing to meet with [facility] however is not interested in an Inpatient [facility] program.
Spoke with LANDON Holloway; he will meet with the patient tomorrow.
Discussed short term SNF for rehab and patient reluctantly agrees to a SNF in [place].
She says her neighbors have been taking care of her cats and she will be eager to go home.
She is also concerned about going to rehab saying she has OCD and many phobias.
SNF list provided.
SNF referrals placed.
Plan follow up with L[facility].
Plan follow up SNF referrals.
--- NOTE | 2024-05-22 17:30 | PTCARENOTE ---
Report given and transferred to [id number].
[2024-05-22] MEDS: LOVENOX 40 MG SC (18:37)
[2024-05-22 19:15] LABS: Glucose - Point of Care 97 mg/dl (70-99)
[2024-05-22] MEDS: VITAMIN B1 100 MG PO (20:13)
[2024-05-22 21:14] LABS: Glucose - Point of Care 118 mg/dl (70-99)
[2024-05-23] MEDS: VISBIOME 1 CAP PO ×2 (00:57→09:16)
[2024-05-23 03:13] VITALS: BP 136/98
[2024-05-23] MEDS: ROXICODONE 5 MG PO (06:03)
[2024-05-23 07:25] LABS: Hematocrit 28.6 % (37.0-47.0); Hemoglobin 9.3 g/dL (12.0-16.0); Mean Corp Hgb Conc. 32.5 g/dL (33.0-37.0); Mean Corpuscular Hgb 29.8 pg (27.0-31.0); Mean Corpuscular Volume 91.7 fL (81.0-99.0); Mean Platelet Volume 10.5 fL (7.4-10.4); Platelet Count 159 10^3/uL (130-400); Red Blood Cell Count 3.12 10^6/uL (4.20-5.40); Red Cell Dist. Width 14.8 % (11.5-14.5); White Blood Cell Count 3.3 10^3/uL (4.8-10.8)
[2024-05-23 07:38] LABS: ALT (SGPT) 101 U/L (0-35); AST (SGOT) 133 U/L (14-36); Albumin 2.2 g/dl (3.5-5.0); Alkaline Phosphatase 144 U/L (38-126); Blood Urea Nitrogen 10 mg/dl (7-17); Carbon Dioxide 31 mmol/L (22-30); Chloride 100 mmol/L (98-107); Estimated Creatinine Clearance 90 ml/min; Glucose 89 mg/dl (70-99); Potassium 3.5 mmol/L (3.5-5.1); Sodium 132 mmol/L (135-145); Total Bilirubin 0.4 mg/dl (0.2-1.3); Total Protein 4.4 g/dl (6.3-8.2); eGFR > 60.00
[2024-05-23 08:07] VITALS: BP 146/72
[2024-05-23 08:09] LABS: TSH Reflex To Free T4 1.04 uIU/ml (0.47-4.68)
--- NOTE | 2024-05-23 09:07 | W.PN.HOSP.TC ---
Today's Communication/Plan
-
Cleared by GI for discharge today
Assessment / Plan
Assessment / Plan
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 Melena in ER.
1 bottle vodka 750 mL daily for the past several weeks.
Motrin 600 mg daily along with Aleve 3-4 times a week aspirin a couple times a week and Celebrex 1-2 times daily.
reports she has had black liquid stool with some formed pieces since she has not been eating much.
20 pound weight loss in the past 6 months.
A/P:
# Acute blood loss anemia likely 2/2 Acute upper GI bleed, possibly secondary to PUD, gastritis, alcohol abuse, NSAID abuse
# Hx GERD
# Hx gastric bypass
Black stool heme positive in ER
Typed and screened, blood consent obtained in the ER
GI recc Pantoprazole 40 mg IV BID (started)
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
GI recommends PPI twice daily for 4 weeks, then daily
Avoid all NSAIDs, needs repeat EGD in 2 months, follow-up with Dr. Wilburn
Cleared by GI for discharge
#Hyponatremia
Fluid restriction, TSH and cortisol normal, trend sodium
# Hypokalemia
Resolved
# Sore throat / headache concerning for URI / viral illness
COVID and influenza swab both (-)
Cepacol PRN
# Acute Transaminitis, likely secondary to alcohol abuse, improving
CPK WNL, salicylate and Tylenol levels neg
Hepatitis panel negative
Abd US: Hepatic fatty infiltration. Stable. Mild hepatomegaly. New.
Trend LFT
# Acute alcohol intoxication/alcohol abuse with withdrawal
# Acute metabolic acidosis (resolved) 2/2 alcohol abuse
Last drink was 05/19/24 at 11 AM 1 bottle vodka, Blood alcohol level 338
Phenobarb with taper, MSAS protocol
CM to assist with [facility]
Patient wants to do outpatient rehab, declines inpatient alcohol rehab
# Acute hypoglycemia in setting of alcohol intoxication, resolved after treatment
# Acute Hypotension secondary to volume depletion, resolved
# Essential HTN
cont home lisinopril with holding parameter
# Acute on chronic lower back pain
# Opioid use with dependency
Hold all NSAIDS
Started Oxycodone 5 mg daily 4 times daily as needed for severe pain in place of Percocet with Tylenol due to transaminitis
Continue Flexeril 10 mg p.o. at bedtime
Tylenol level < 10
#Hypomagnesemia
Repleted and resolved
# Anxiety/depression
Continue Lexapro 10 mg daily started this 1 month ago was on prior Prozac
Continue BuSpar 15 mg p.o. twice daily
Mood stable, informed pt that she can follow up at [facility] outpatient after discharge
#Severe protein calorie malnutrition
Encourage oral intake
Other medical conditions
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
# COPD-no acute exacerbation
# Former smoker 48-year 1 pack a day quit 18 years ago
# HLD-No current medication likely due to history of transaminitis
# SHARI
# Asthma -no acute exacerbation
# Right breast cancer status postlumpectomy and radiation therapy
# DDD
# Cervical disc disease
# Obesity (resolved) status post gastric bypass
# [place] bilateral hearing aids
# Right parotid mass status post right complete parotidectomy with facial nerve monitoring and preservation of facial nerve 08/18/2023 Dr. Lawson
DVT prophylaxis�subcu Lovenox
Full code
Physical Exam
General: No acute distress
HEENT: Normocephalic, Atraumatic, EOMI, MMM
Respiratory: Clear to Auscultation bilaterally
Cardiac: Normal S1/S2, Regular Rate and Rhythm
GI: Soft, Nontender, Nondistended, Normal Bowel Sounds
Extremities: No Clubbing, Cyanosis, or Edema
Neuro: Nonfocal/Grossly Intact
Psych: Calm, Cooperative
Derm: No Visible lesions
Anticipated Discharge: Today
Subjective/Interval History
-
Date of Service: May 23, 2024
Patient denies black or bloody stools. No shakes. No fever, no vomiting. She is requesting discharge today.
Objective Data
-
Labs:
Laboratory Results
05/23/24
06:39
WBC 3.3 L
Hgb 9.3 L
Hct 28.6 L
Plt Count 159
Sodium 132 L
Potassium 3.5
Chloride 100
Carbon Dioxide 31 H
BUN 10
Creatinine 0.4 L
Glucose 89
Calcium 8.0 L
Total Bilirubin 0.4
AST 133 H
ALT 101 H
Alkaline Phosphatase 144 H
Vital Signs:
Vital Signs
Temp Pulse Resp BP Pulse Ox
98.1 F 72 18 146/72 98
05/23/24 08:07 05/23/24 08:07 05/23/24 08:07 05/23/24 08:07 05/23/24 08:07
I&O
05/22/24 05/23/24 05/24/24
06:59 06:59 06:59
Intake Total 1130 / 1130
Output Total 650 / 650 800 / 800
Balance -650 / -650 330 / 330
[2024-05-23] MEDS: LUMINAL 64.8 MG PO (09:15)
[2024-05-23] MEDS: ZESTRIL 20 MG PO (09:15)
[2024-05-23] MEDS: PROTONIX IV 40 MG IV (09:16)
[2024-05-23] MEDS: FOLVITE 1 MG PO (09:16)
[2024-05-23] MEDS: BUSPAR 15 MG PO (09:16)
[2024-05-23] MEDS: NSS (PRESERVATIVE FREE) 10 ML IV (09:16)
[2024-05-23] MEDS: LEXAPRO 10 MG PO (09:16)
[2024-05-23] MEDS: VITAMIN B1 100 MG PO (09:16)
--- NOTE | 2024-05-23 09:54 | PN.CDI ---
CDI
- -
CDI:
Physician Documentation Request
Admit Date: 05/19/24 17:08
Dear Doctor Do,
Please review the following and provide your response in the progress notes.
Clinical Indicators:
- 05/20 Sales Store Checker note indicates severe protein calorie malnutrition
- Unintentional weight loss >10% in 6 months
- Nutrient intake </= 50% estimated energy needs for >/= 1 month
Based on the above information and your assessment, which of the following most accurately represents the patient's nutritional status?
Severe protein calorie malnutrition
Other (please specify)
Sumner Criteria ([facility] Hospitalist 2017)
2 or more criteria must be present for either
non severe or severe malnutrition
Note that the criteria differs related to the
presence of an acute or chronic illness
Acute Illness Chronic Illness
Energy Intake Non Severe: <75% for >7 days Non Severe: <75% for >1 month
Severe: <50% for >5 days Severe: <75% for >1 month
Weight Loss Non Severe: 1-2% over 1 week Non Severe: 5% over 1 month
5% over 1 month 7.5% over 3 months
7.5% over 3 months 10% over 6 months
1 year N/A 20% over 1 year
Severe: >2% over 1 week Severe: >5% over 1 month
>5% over 1 month >7.5% over 3 months
>7.5% over 3 months >10% over 6 months
1 year N/A >20% over 1 year
Body Fat Non Severe: Mild Decrease Non Severe: Mild Loss
Severe: Moderate Decrease Severe: Severe Loss
Muscle Mass Non Severe: Mild Decrease Non Severe: Mild Loss
Severe: Moderate Decrease Severe: Severe Loss
Fluid Accumulation Non Severe: Mild Accumulation Non Severe: Mild Accumulation
Severe: Moderate to severe Severe: Moderate to severe
accumulation accumulation
Reduced Student Union Consultant Strength Non Severe: N/A Non Severe: N/A
Severe: Measurably reduced Severe: Measurably reduced
Additional criteria that can be used to Determine if Mild or Moderate Malnutrition (Merck Manual 2018)
Mild Moderate Severe
Albumin gm/dl <3.0 gm/dl <2.5 gm/dl <2.0 gm/dl
Pre Albumin mg/dl <15 gm/dl <10 mg/dl <5.0 mg/dl
BMI <18.5 <17 <16
Use of terms such as suspected, likely, concern for, or probable (associated with a specific diagnosis that is being evaluated, monitored, or treated as if it exists) are acceptable and can be coded in the inpatient setting, when documented at the
time of discharge.
Thank you,
Olga Carnes RN
CDI Specialist
Please use your independent medical judgment in providing your response.
--- NOTE | 2024-05-23 09:58 | PN.CDI ---
CDI
- -
CDI:
Physician Documentation Request
Admit Date: 05/19/24 17:08
Dear Doctor Do,
Please review the following and provide your response in the progress notes.
Clinical Indicators:
- 05/21 2gram IV magnesium sulfate given
- Magnesium levels:
Laboratory Tests
05/20/24 05/21/24 05/22/24
03:47 04:07 05:37
Magnesium 1.5 L 1.5 L 1.7
Please provide a diagnosis for the above lab values that were monitored and treatment rendered:
Hypomagnesemia
Clinically insignificant abnormal lab value
Other (please specify)
Use of terms such as suspected, likely, concern for, or probable (associated with a specific diagnosis that is being evaluated, monitored, or treated as if it exists) are acceptable and can be coded in the inpatient setting, when documented at the
time of discharge.
Thank you,
Olga Carnes RN
CDI Specialist
Please use your independent medical judgment in providing your response.
--- NOTE | 2024-05-23 10:02 | PN.CDI ---
CDI
- -
CDI:
Physician Documentation Request
Admit Date: 05/19/24 17:08
Dear Doctor Do,
Please review the following and provide your response in the progress notes.
Clinical Indicators:
- 05/23 PN 'Acute alcohol intoxication/alcohol abuse...blood alcohol level 338'
- MSAS score 2-8
- 1mg Lorazepam given x 6
- 05/21 RN note 'anxiety, restlessness and increased tremors'
If possible, please provide further specificity as outlined below:
Alcohol abuse with withdrawal
Alcohol abuse without withdrawal
Other (please specify)
Use of terms such as suspected, likely, concern for, or probable (associated with a specific diagnosis that is being evaluated, monitored, or treated as if it exists) are acceptable and can be coded in the inpatient setting, when documented at the
time of discharge.
Thank you,
Olga Carnes RN
CDI Specialist
Please use your independent medical judgment in providing your response.
--- NOTE | 2024-05-23 10:12 | PN.CDI ---
CDI
- -
CDI:
Physician Documentation Request
Admit Date: 05/19/24 17:08
Dear Doctor Do,
Please review the following and provide your response in the progress notes.
Clinical Indicators:
- 05/22 PN 'Acute on chronic lower back pain'
- 'Started Oxycodone...as needed for severe pain in place of Percocet with Tylenol due to transaminitis'
- H&P home med percocet QID PRN
- 5mg Oxycodone given x 7
If possible, please provide further specificity as outlined below:
Opioid use with dependence
Opioid dependence
Other (please specify)
Use of terms such as suspected, likely, concern for, or probable (associated with a specific diagnosis that is being evaluated, monitored, or treated as if it exists) are acceptable and can be coded in the inpatient setting, when documented at the
time of discharge.
Thank you,
Olga Carnes RN
CDI Specialist
Please use your independent medical judgment in providing your response.
--- NOTE | 2024-05-23 11:13 | W.DCSUMMARY ---
Discharge Summary
Discharge Data
Date of Admission: 05/19/24
Date of Discharge: 05/23/24
-
Pending Results: No
Hospital Course
Discharge diagnosis:
Acute blood loss anemia
Gastrojejunal anastomosis ulcer
Ivy's esophagus
Hyponatremia
Hypokalemia
Acute alcohol intoxication/alcohol abuse with withdrawal
Alcoholic ketoacidosis
Acute alcoholic transaminitis
Acute on chronic lower back pain
Opioid use with dependency
Hypoglycemia
Hypotension
Anxiety/depression
Severe protein calorie malnutrition
Consults: GI
Procedures: 05/22/2024 endoscopy
Impression: - [place]ell-colored mucosa suggestive of short-segment
Ivy's esophagus. Biopsied.
- Small hiatal hernia.
- Gastric bypass with a small-sized pouch and intact
staple line. Gastrojejunal anastomosis characterized
by ulceration-10 mm non bleeding ulcer seen. Biopsied.
- Normal examined jejunum/bettie limb.
- Biopsies were taken with a cold forceps for
Helicobacter pylori testing.
Recommendation: - Continue present medications.
- Use Protonix (pantoprazole) 40 mg PO BID for 4 weeks
and then daily.
- No ibuprofen, naproxen, or other non-steroidal
anti-inflammatory drugs.
- Repeat upper endoscopy in 2 months to check healing
along with colonoscopy.
- F/u with as scheduled
Hospital course:
68-year-old female with a past medical history of alcohol use disorder, chronic headaches, anxiety/depression, ADD, right breast cancer status post lumpectomy/radiation, COPD, former smoker, right upper lobe adenocarcinoma status post resection,
hypertension, Takotsubo cardiomyopathy, hyperlipidemia, obstructive sleep apnea, asthma, GERD, degenerative disc disease, cervical disc disease, obesity status post gastric bypass, and hearing loss was admitted for black stools and alcohol
withdrawal. She has been using Celebrex, aspirin, Aleve, and Motrin daily for back pain.
Patient was seen in conjunction with GI. She was treated with Protonix 40 mg IV twice daily. Her hemoglobin was 11.0 on admission, and dropped to 9.5. It remained stable at 9.3 on the day of discharge. She had an EGD which showed Ivy's
esophagus, small hiatal hernia, nonbleeding ulcer. GI recommends Protonix 40 mg twice daily for 1 month, then daily.
For her alcohol withdrawal with dependency, she was treated with a phenobarbital taper, Ativan, thiamine, and folic acid. She has been counseled to abstain from drinking alcohol. She reports understanding.
Patient is medically stable and cleared by GI for discharge. She has been counseled to avoid Celebrex, aspirin, and all babq-xyk-oehuzwm NSAIDs. She needs to follow-up with her primary care doctor in 1 week, and GI in the office in 2 months.
Disposition: Home self-care
Discharge planning: Required 42 minutes
Discharge Plan
-
Patient Disposition: Home (Routine Discharge)
Discharge Diagnosis/Procedures: Black stools, Ivy's esophagus, hiatal hernia, acute blood loss anemia, alcohol intoxication with dependency
Condition: Fair
Diet: Regular
Activity: As tolerated
Activity Restrictions/Additional Instructions:
Please avoid aspirin, celecoxib, and all vhao-fbi-drhesfr NSAID medications such as ibuprofen, naproxen, Aleve, Motrin, and Advil.
These medications will irritate your stomach and cause bleeding.
GI recommends pantoprazole 40 mg twice a day for 4 weeks, then daily.
Follow-up with your usual GI doctor, Dr. Wilburn in 2 months for repeat EGD.
Please abstain from alcohol use, recommend you do outpatient alcohol rehab.
Percocet can cause constipation, you may take an uvsu-oyu-npowzom laxative as needed.
Follow-up with your primary care doctor in 1 week.
Referrals:
Harrison Wilburn, DO [Active] - in one to two months
UNKNOWN,NO INTERVIEW [Family Provider] -
Prescriptions:
New
pantoprazole 40 mg tablet,delayed release (DR/EC)
40 mg PO BID 28 Days Qty: 56 0RF
thiamine HCl (vitamin B1) 100 mg tablet
100 mg PO DAILY Qty: 30 0RF
Continued
lisinopril 20 MG tablet
20 mg PO DAILY
trazodone 100 mg Tablet
100 mg PO HS
buspirone 15 mg Tablet
15 mg PO BID
cyclobenzaprine 10 mg tablet
10 mg PO HS
therapeutic multivitamin Tablet
1 tab PO DAILY
escitalopram oxalate [Lexapro] 5 mg Tablet
10 mg PO DAILY
Rx Instructions:
dose increased
oxycodone-acetaminophen [Percocet] 7.5-325 mg Tablet
1 tab PO QIDPRN PRN (Reason: severe pain) Qty: 30 0RF
Discontinued
celecoxib [Celebrex] 200 mg Capsule
200 mg PO DAILY
Aspir-81
81 mg PO DAILY PRN (Reason: Back pain)
Patient Comments:
Patient takes several times a week
Motrin
600 mg PO DAILY PRN (Reason: back pain)
Patient Comments:
Patient takes 3-4 times a week
naproxen
220 mg PO DAILY PRN (Reason: Back pain, headache)
Rx Instructions:
Patient takes 3-4 times a week
Discharge Orders:
Discharge Patient (As Directed); Ordered 05/23/24
Ordered By: Teo Jones
Discharge Date and Time
Discharge Date/Time: 05/23/24 12:39
Print Language: FIJIAN
--- NOTE | 2024-05-23 11:23 | CM ---
Addendum entered by Lauren Mehta 05/23/24 11:29:
Plan: ISAURO to follow up with Minna to provide resources via telephone later today when Lydia is home. No other needs identified.
Original Note:
Pt is ready for discharge today. ISAURO language therapist, Effie, made several attempts to contact pt in her room, but pt did not answer the phone.
ISABEL spoke with Lydia who advised that due to a hearing impairment, she is not able to hear on the phone. She agreed that Effie could call her later today on her home phone where she should be able to converse.
ISABEL provided Effie with Lydia's home phone number; Effie will contact Lydia later today.
[2024-05-23 11:38] VITALS: BP 147/83
== END 2024-05-23 12:39 | disposition home or self-care (01) | DRG 377 ==
LOC: 4 EAST ACU 17:08
PROVIDERS: Clinical Nurse Specialist Family Health; Nurse Practitioner; ADMITTING PHYSICIAN Hospitalist; ATTENDING PHYSICIAN Family Medicine; CONSULT PHYSICIAN Internal Medicine Gastroenterology; EMERGENCY PHYSICIAN Emergency Medicine
PROC: 0DB68ZX Excision of Stomach, Via Natural or Artificial Opening Endoscopic, Diagnostic (ICD-10-PCS; 2024-05-22)
PROC: 0DB38ZX Excision of Lower Esophagus, Via Natural or Artificial Opening Endoscopic, Diagnostic (ICD-10-PCS; 2024-05-22)
DX: K28.4 Chronic or unspecified gastrojejunal ulcer with hemorrhage (principal); E43 Unspecified severe protein-calorie malnutrition; I51.81 Takotsubo syndrome; D62 Acute posthemorrhagic anemia; F11.20 Opioid dependence, uncomplicated; E87.21 Acute metabolic acidosis; E87.1 Hypo-osmolality and hyponatremia; F10.139 Alcohol abuse with withdrawal, unspecified; F10.129 Alcohol abuse with intoxication, unspecified; F41.9 Anxiety disorder, unspecified; F32.A Depression, unspecified; G47.33 Obstructive sleep apnea (adult) (pediatric); I10 Essential (primary) hypertension; K22.70 Barrett's esophagus without dysplasia; I95.89 Other hypotension; H91.93 Unspecified hearing loss, bilateral; E87.6 Hypokalemia; E78.5 Hyperlipidemia, unspecified; E86.9 Volume depletion, unspecified; G89.29 Other chronic pain; J44.89 Other specified chronic obstructive pulmonary disease; E16.2 Hypoglycemia, unspecified; T39.395A Adverse effect of other nonsteroidal anti-inflammatory drugs [NSAID], initial encounter; E83.42 Hypomagnesemia; K21.9 Gastro-esophageal reflux disease without esophagitis; K44.9 Diaphragmatic hernia without obstruction or gangrene; K70.10 Alcoholic hepatitis without ascites; Y90.8 Blood alcohol level of 240 mg/100 ml or more; Z87.891 Personal history of nicotine dependence; Z97.4 Presence of external hearing-aid; Z98.84 Bariatric surgery status; Z85.818 Personal history of malignant neoplasm of other sites of lip, oral cavity, and pharynx; Z85.3 Personal history of malignant neoplasm of breast; Z85.118 Personal history of other malignant neoplasm of bronchus and lung; Z79.899 Other long term (current) drug therapy; Z11.52 Encounter for screening for COVID-19; Z68.22 Body mass index [BMI] 22.0-22.9, adult
CPT/HCPCS: 88305; 76700; 80053; 80061; 80143; 80179; 80306; 80307; 81003; 81015; 82010; 82077; 82248; 82533; 82550; 82962; 82977; 83036; 83690; 83735; 84100; 84443; 85025; 85027; 85610; 86704; 86706; 86708; 86803; 86850; 86900; 86901; 87324; 87340; 87449; 87502; 87798; 87811; 88342; 90677; 93005; 93975; 96361; 96365; 96366; 96367; 96375; 97163; 97167; 99285; G0009

== ENCOUNTER 2024-07-12 06:25 | Day surgery (SDC) | payer MEDICARE, SELFPAY | END 2024-07-12 12:40 | disposition home or self-care (01) | LOC: GI 06:25 | PROVIDERS: ATTENDING PHYSICIAN Student in an Organized Health Care Education/Training Program | DX: Z12.11 Encounter for screening for malignant neoplasm of colon (principal); Q43.8 Other specified congenital malformations of intestine; K64.9 Unspecified hemorrhoids; K57.30 Diverticulosis of large intestine without perforation or abscess without bleeding; K22.89 Other specified disease of esophagus; K28.3 Acute gastrojejunal ulcer without hemorrhage or perforation; K64.4 Residual hemorrhoidal skin tags; D12.2 Benign neoplasm of ascending colon; D12.0 Benign neoplasm of cecum; K29.50 Unspecified chronic gastritis without bleeding; K22.70 Barrett's esophagus without dysplasia; K31.A19 Gastric intestinal metaplasia without dysplasia, unspecified site; Z98.84 Bariatric surgery status; Z86.0100 Personal history of colon polyps, unspecified | CPT/HCPCS: 45385; 43239; 88305; 88342 ==

== ENCOUNTER → 2024-08-03 14:01 | Outpatient (REF) | payer MEDICARE, SELFPAY ==
[2024-08-03 15:17] LABS: % Basophils 1.6 % (0-2); % Eosinophils 2.8 % (0-6); % Immature Granulocytes 0.5 % (0-0.5); % Lymphocytes 31.1 % (20.5-51.1); % Monocytes 11.5 % (1.7-9.3); % Neutrophils 52.5 % (42.2-75.2); Absolute Basophils 0.1 10^3/uL (0-0.2); Absolute Eosinophils 0.1 10^3/uL (0-0.7); Absolute Lymphocytes 1.3 10^3/uL (1.2-3.4); Absolute Monocytes 0.5 10^3/uL (0.1-0.6); Absolute Neutrophils 2.2 10^3/uL (1.4-6.5); Hematocrit 31.6 % (37.0-47.0); Hemoglobin 9.9 g/dL (12.0-16.0); Mean Corp Hgb Conc. 31.3 g/dL (33.0-37.0); Mean Corpuscular Volume 89.5 fL (81.0-99.0); Mean Platelet Volume 10.3 fL (7.4-10.4); Nucleated Red Blood Cells % 0 %; Platelet Count 308 10^3/uL (130-400); Red Blood Cell Count 3.53 10^6/uL (4.20-5.40); Red Cell Dist. Width 16.7 % (11.5-14.5); White Blood Cell Count 4.3 10^3/uL (4.8-10.8)
[2024-08-03 15:27] LABS: INR 0.89; PT 12.6 Sec (11.4-14.6)
[2024-08-03 15:28] LABS: APTT 26.4 Sec (23.4-35.0)
[2024-08-03 15:53] LABS: Alkaline Phosphatase, Total 104 U/L (38-126); GGTP 130 U/L (12-43); Iron 52 ug/dl (37-170)
[2024-08-03 15:58] LABS: IgA 282 mg/dl (70-400); IgG 1164 mg/dl (700-1600); IgM 102 mg/dl (40-230)
[2024-08-03 16:03] LABS: Percent Saturation 12 % (20-50); Total Iron Binding Capacity 418 ug/dl (265-497)
[2024-08-03 16:05] LABS: Alk Phos After Heat 80; Alkaline Phosphatase Percent 76.92
[2024-08-03 16:19] LABS: TSH Reflex To Free T4 < 0.02 uIU/ml (0.47-4.68)
[2024-08-03 16:23] LABS: Ferritin 8.5 ng/ml (11.1-264.0)
[2024-08-03 16:45] LABS: Free T4 0.89 ng/dl (0.78-2.19)
[2024-08-03 18:59] LABS: Hepatitis B Surface Antigen Negative (Negative)
[2024-08-03 19:18] LABS: Hepatitis A Antibody, Total Negative (Negative); Hepatitis B Core Ab, Total Negative (Negative); Hepatitis B Surface Antibody Negative; Hepatitis C Antibody Negative (Negative)
[2024-08-03 20:21] LABS: Hepatitis A IgM Antibody Negative (Negative); Hepatitis B Core Ab, IgM Negative (Negative)
[2024-08-06 04:42] LABS: IgG Subclass 4 32 mg/dL (1-123)
[2024-08-06 04:49] LABS: Alpha-1-Antitrypsin 152 mg/dL (90-200)
[2024-08-06 05:48] LABS: Ceruloplasmin 31 mg/dL (16-45)
== END ==
LOC: REG 14:01
PROVIDERS: ATTENDING PHYSICIAN Student in an Organized Health Care Education/Training Program; FAMILY PHYSICIAN Family Medicine
DX: R79.89 Other specified abnormal findings of blood chemistry (principal)
CPT/HCPCS: 36415; 82103; 82390; 82728; 82784; 82787; 82977; 83516; 83540; 83550; 84078; 84439; 84443; 85025; 85610; 85730; 86015; 86038; 86376; 86381; 86704; 86705; 86706; 86708; 86709; 86803; 87340

== ENCOUNTER 2024-09-20 16:59 | Emergency (ER) | payer MEDICARE, SELFPAY ==
[2024-09-20 16:59] VITALS: BMI 25.0
[2024-09-20 17:02] VITALS: BP 134/88
--- NOTE | 2024-09-20 17:43 | ED.GENMED ---
History of Present Illness
General
Chief Complaint: Musculo-Skeletal Complaint
Source: patient
Exam Limitations: none
Time Seen by Provider: 09/20/24 17:18
Nursing documentation reviewed up to this point in time: agreed with
History of Present Illness
History of Present Illness:
Patient is a 69-year-old female with past medical history of hypertension hyperlipidemia reflux alcohol abuse right sided breast cancer presents to the ER for evaluation of fall. She does report that she was drinking today. Patient reports she was
getting food that was delivered and fell down several steps outside. She could not get up. EMS came. She does believe she may have bumped her head. She denies loss of consciousness or headache. She denies any neck pain. She does complain of
left hand swelling and bruising. She also complains of scattered bruises to her arms which are not new.
Past History
Past History
ED Past Medical History: HTN, Psychiatric and Other (obesity )
ED Past Surgical History: Other (being considered for bariatric surgery )
Social History
Tobacco: Former smoker
Alcohol: None
Drug: None
Personal:
Living: with family
Employment: Employed
Review of Systems
Review of Systems
Allergies reviewed?: Yes
All Other Systems: ROS reviewed and negative except as documented in HPI and ROS
Phy Exam
General Physical Exam
General Presentation: no apparent distress
General age: appears stated age
General Skin: warm and dry
General Habitus: normal
General Hydration: dry mucous membranes
Cardiovascular Exam
Cardiovascular Exam: regular rate/rhythm, no murmur and normal peripheral pulses
Pulmonary Exam
Pulmonary Exam: lungs clear and no respiratory distress
Neurological Exam
Neurological Exam: alert and oriented x3
Musculoskeletal Exam
Musculoskeletal Exam: other (Scattered ecchymosis to bilateral upper extremities; dorsal aspect of left hand along first metacarpal region/wrist with swelling and mild tenderness)
Skin Exam
Skin Exam: normal color and warm/dry
Psychiatric Exam
Psychiatric Exam: normal mood/affect
Course
Orders/Labs/Results
Orders:
Orders
09/20/24 17:[address] Cervical Spine W/o Iv Contr Urgent
Comment:
Reason For Exam: trauma
CT Head W/o Iv Contrast Urgent
Comment:
Reason For Exam: trauma
09/20/24 17:39
Hand, Left 3 View [CR Hand - Left Min 3 Views] Urgent
Comment:
Reason For Exam: trauma
09/20/24 18:17
Complete Blood Count/With Diff Urgent
Comprehensive Metabolic Panel Urgent
PTT Urgent
Prothrombin Time Urgent
09/20/24 19:21
Splints/Slings/Crut- Treatment ONCE
Location: Left
Type of Splint: Volar
Abnormal Lab Results
09/20/24
18:17
RBC 3.83 L 10^6/uL
(4.20-5.40)
Hgb 10.8 L g/dL
(12.0-16.0)
Hct 33.6 L %
(37.0-47.0)
MCHC 32.1 L g/dL
(33.0-37.0)
RDW 16.4 H %
(11.5-14.5)
APTT 23.3 L Sec
(23.4-35.0)
BUN 24 H mg/dl
(7-17)
Calcium 8.1 L mg/dl
(8.4-10.2)
AST 53 H U/L
(14-36)
Total Protein 5.7 L g/dl
(6.3-8.2)
Albumin 3.0 L g/dl
(3.5-5.0)
09/20/24 18:17
09/20/24 18:17
Vital Signs
Initial and Last Documented VS:
Initial Vital Signs
Temp Pulse Resp BP Pulse Ox
97.4 F 83 18 134/88 96
09/20/24 17:02 09/20/24 17:02 09/20/24 17:02 09/20/24 17:02 09/20/24 17:02
Last Documented Vital Signs
Temp Pulse Resp BP Pulse Ox
97.4 F 84 18 123/84 97
09/20/24 17:02 09/20/24 18:47 09/20/24 18:47 09/20/24 19:00 09/20/24 19:30
Parallel Computing Software Engineer consulted with Physician
Parallel Computing Software Engineer consulted with physician?: Yes
Name of Physician Consulted: noh
MDM/Problems Addressed
MDM/Problems Addressed:
As documented patient is a 69-year-old female who admitted to tripping down outside steps today falling hitting her left wrist and did hit her head. She was assisted up brought by EMS. She does drink alcohol and drink a couple drinks today. She
presents however awake alert no acute distress oriented clear speech with stable vital signs. No obvious head injury on exam. CT head and cervical spine are negative. Left wrist hand/swelling and tenderness x-ray does show impacted fractures of
the distal radius and ulna.
Splint placed. Patient slow but steady ambulated back and forth to the bathroom.
Patient with stable vital signs normal white count hemoglobin minimally low at 10.8 however improved from 9.9 May 8. BUN minimally elevated at 24 patient drinking fluids will also give 500 mL bolus of NSS
Will DC with Ortho follow-up.
I did offer patient [facility] but she declined stating she is 'working on it.'
*Radiology
Radiology exam reviewed: radiology read reviewed
*Pulse Oximetry
SaO2: 96
Oxygen Mode of Delivery: Room air
Patient hypoxic: no
*Critical Care Note
Total Time (30-74mins, 75-104mins- exclusive of procedures): Not Applicable
ED Attending Note
-
Portions of this chart may have been created with voice recognition software.� Occasional wrong word or��sound alike� substitutions may have occurred due to the inherent limitations of voice recognition software.
Discharge Plan
Departure
Patient Disposition: Home (Routine Discharge)
Date of Disposition: 09/20/24
Time of Disposition: 20:01
Patient with high blood pressure during this ER visit?: No
Condition: Fair
Covid-19: Not Applicable
Discharge Problem:
Fracture of wrist, Fall
Instructions: Alcohol use - When is drinking a problem?, Common wrist injuries, Splint Care
Prescriptions:
No Action
lisinopril 20 MG tablet
20 mg PO DAILY
trazodone 100 mg Tablet
100 mg PO HS
buspirone 15 mg Tablet
15 mg PO BID
cyclobenzaprine 10 mg tablet
10 mg PO HS
therapeutic multivitamin Tablet
1 tab PO DAILY
escitalopram oxalate [Lexapro] 5 mg Tablet
10 mg PO DAILY
Rx Instructions:
dose increased
pantoprazole 40 mg tablet,delayed release (DR/EC)
40 mg PO BID 28 Days Qty: 56 0RF
oxycodone-acetaminophen [Percocet] 7.5-325 mg Tablet
1 tab PO QIDPRN PRN (Reason: severe pain) Qty: 30 0RF
thiamine HCl (vitamin B1) 100 mg tablet
100 mg PO DAILY Qty: 30 0RF
Referrals:
Elijah Rainey MD [Active, Orthopedics]
Kenton Colón MD [Family Provider, Family Practice]
Activity Restrictions/Additional Instructions:
Follow-up with orthopedics as discussed for reevaluation of your left wrist fracture. Call tomorrow to make an appointment. Ice over the affected area for the next 24 hours
Do not wet splint. Keep elevated as much as possible. Only take Tylenol very sparingly for pain. Return if any worsening of symptoms.
Interventions
Interventions:
*Risk Screen - Suicide Last Done: 09/20/24 17:02
*General Assessment Last Done: 09/20/24 17:02
*Neglect/Abuse Screening Last Done: 09/20/24 17:02
*ED- Fall Risk Assessment Last Done: 09/20/24 17:02
*ED COVID-19 Vaccine History Last Done: 09/20/24 17:02
ED-Musculoskeletal Assessment Last Done: 09/20/24 17:05
Discharge Date and Time
Print Language: ESTONIAN
[2024-09-20 18:14] VITALS: BP 139/82
[2024-09-20 18:22] LABS: % Basophils 1.7 % (0-2); % Eosinophils 3.5 % (0-6); % Immature Granulocytes 0.3 % (0-0.5); % Lymphocytes 38.6 % (20.5-51.1); % Neutrophils 49.9 % (42.2-75.2); Absolute Basophils 0.1 10^3/uL (0-0.2); Absolute Eosinophils 0.2 10^3/uL (0-0.7); Absolute Lymphocytes 2.3 10^3/uL (1.2-3.4); Absolute Monocytes 0.4 10^3/uL (0.1-0.6); Hematocrit 33.6 % (37.0-47.0); Hemoglobin 10.8 g/dL (12.0-16.0); Mean Corp Hgb Conc. 32.1 g/dL (33.0-37.0); Mean Corpuscular Hgb 28.2 pg (27.0-31.0); Mean Corpuscular Volume 87.7 fL (81.0-99.0); Mean Platelet Volume 10.3 fL (7.4-10.4); Nucleated Red Blood Cells % 0 %; Platelet Count 348 10^3/uL (130-400); Red Blood Cell Count 3.83 10^6/uL (4.20-5.40); Red Cell Dist. Width 16.4 % (11.5-14.5)
[2024-09-20 18:33] LABS: APTT 23.3 Sec (23.4-35.0); INR 1.02; PT 13.9 Sec (11.4-14.6)
[2024-09-20 18:52] LABS: ALT (SGPT) 34 U/L (0-35); AST (SGOT) 53 U/L (14-36); Alkaline Phosphatase 109 U/L (38-126); Blood Urea Nitrogen 24 mg/dl (7-17); Calcium 8.1 mg/dl (8.4-10.2); Carbon Dioxide 27 mmol/L (22-30); Chloride 107 mmol/L (98-107); Estimated Creatinine Clearance 88 ml/min; Glucose 87 mg/dl (70-99); Potassium 4.5 mmol/L (3.5-5.1); Sodium 138 mmol/L (135-145); Total Bilirubin 0.3 mg/dl (0.2-1.3); Total Protein 5.7 g/dl (6.3-8.2); eGFR > 60.00
[2024-09-20 19:00] VITALS: BP 123/84
[2024-09-20 20:00] VITALS: BP 154/96
[2024-09-20] MEDS: NSS 500 IV (20:03)
[2024-09-20] MEDS: TYLENOL 650 MG PO (20:39)
[2024-09-20 20:50] VITALS: BP 139/91
== END 2024-09-20 21:11 | disposition home or self-care (01) ==
LOC: EMR 16:59
PROVIDERS: Nurse Practitioner; EMERGENCY PHYSICIAN Emergency Medicine; FAMILY PHYSICIAN Family Medicine
DX: S52.592A Other fractures of lower end of left radius, initial encounter for closed fracture (principal); S52.692A Other fracture of lower end of left ulna, initial encounter for closed fracture; I10 Essential (primary) hypertension; W10.9XXA Fall (on) (from) unspecified stairs and steps, initial encounter; E78.00 Pure hypercholesterolemia, unspecified; E66.9 Obesity, unspecified; Z85.3 Personal history of malignant neoplasm of breast; Z87.891 Personal history of nicotine dependence
CPT/HCPCS: 99284; 96360; 70450; 72125; 73130; 80053; 85025; 85610; 85730

== ENCOUNTER → 2024-12-14 15:52 | Outpatient (REF) | payer MEDICARE, SELFPAY ==
[2024-12-14 16:32] LABS: Hematocrit 31.4 % (37.0-47.0); Hemoglobin 10.2 g/dL (12.0-16.0); INR 0.96; Mean Corp Hgb Conc. 32.5 g/dL (33.0-37.0); Mean Corpuscular Volume 84.2 fL (81.0-99.0); Nucleated Red Blood Cells % 0 %; PT 13.3 Sec (11.4-14.6); Platelet Count 366 10^3/uL (130-400); Red Cell Dist. Width 15.3 % (11.5-14.5)
[2024-12-14 16:35] LABS: APTT 26.2 Sec (23.4-35.0)
[2024-12-14 16:50] LABS: ALT (SGPT) 19 U/L (0-35); AST (SGOT) 24 U/L (14-36); Albumin 3.3 g/dl (3.5-5.0); Alkaline Phosphatase 112 U/L (38-126); Blood Urea Nitrogen 19 mg/dl (7-17); Calcium 8.5 mg/dl (8.4-10.2); Carbon Dioxide 22 mmol/L (22-30); Chloride 108 mmol/L (98-107); Glucose 132 mg/dl (70-99); Potassium 3.9 mmol/L (3.5-5.1); Sodium 135 mmol/L (135-145); Total Protein 6.1 g/dl (6.3-8.2); eGFR > 60.00
== END ==
LOC: REG 15:52
PROVIDERS: ATTENDING PHYSICIAN Student in an Organized Health Care Education/Training Program; FAMILY PHYSICIAN Family Medicine
DX: R79.89 Other specified abnormal findings of blood chemistry (principal); K70.9 Alcoholic liver disease, unspecified
CPT/HCPCS: 36415; 80053; 85025; 85610; 85730

== ENCOUNTER → 2025-01-18 15:42 | Outpatient (REF) | payer MEDICARE, SELFPAY | LOC: RAD 15:42 | PROVIDERS: ATTENDING PHYSICIAN Student in an Organized Health Care Education/Training Program; FAMILY PHYSICIAN Family Medicine | DX: R63.4 Abnormal weight loss (principal) | CPT/HCPCS: 71260; 74177; Q9967 ==